=== PATIENT | female | born 1975 | race Caucasian/White ===

== ENCOUNTER 2020-04-12 11:41 | Emergency (ER) | payer OTHER, SELFPAY ==
[2020-04-12 11:43] VITALS: BP 144/83; PULSE 51; RESP 18; TEMP 37.7; O2SAT 99; BMI 28.8
--- NOTE | 2020-04-12 13:24 | ED.ABDPAIN ---
HPI - Abdominal Pain General Chief Complaint: Abdominal Pain Stated Complaint: abd pain Time Seen by Provider: 04/12/20 13:24 Source: patient Mode of arrival: ambulatory Limitations: no limitations History of Present Illness HPI narrative: This is a 44-year-old female with past medical history that is significant for hypertension, gastroesophageal reflux disease, degenerative joint disease, arthritis, fibromyalgia, pseudotumor cerebri, BRANCH EMPLOYMENT COORDINATOR shunt, obesity status post cholecystectomy and gastric bypass by Dr. Hebert 2016 subsequently in 2019 had bowel obstruction/intussusecption which require surgical intervention at [facility] and in the meantime she was maintained on a PPI which was discontinued 2 months ago due to concerns for the long-term affects of this she presents today with complaint of upper abdominal/epigastric pain for the past 3 days pain feels like burning and aching with no specific exacerbating/alleviating factors. She has not tried any PPI or other therapies prior to arrival. There is no chest pain or shortness of breath. No fever or symptoms. She does admit that after the bowel obstruction surgery she is very anxious about any sort of abdominal pain and this could be just her reflux but given the pain continuing for 3 days that prompted her to come to emergency room. No fluctuation in weight. Related Data Allergies Allergy/AdvReac Type Severity Reaction Status Date / Time lisinopril [LISINOPRIL] Allergy Unknown COUGH Verified 04/12/20 11:48 oxycodone [Percocet] Allergy Unknown Itching Verified 04/12/20 11:48 Penicillins [PENICILLINS] Allergy Unknown RASH Verified 04/12/20 11:48 lactose intol Allergy Unknown Nausea and Uncoded 04/12/20 11:48 Vomiting Review of Systems Review of Systems Constitutional: No Weight loss, No Fever, No Chills, No Night Sweats, No Fatigue, No Malaise ENT/Mouth: No Hearing loss, No Ear Pain, No Nasal Congestion, No Sinus Pain, No Hoarseness, No sore throat, No Rhinorrhea, No Swallowing Difficulty Eyes: No Eye Pain, No Swelling, No Redness, No Foreign Body, No Discharge, No Vision Changes Cardiovascular: No Chest Pain, No SOB, No Dyspnea on Exertion, No Orthopnea, No Edema, No Palpitations Respiratory: No Cough, No Sputum, No Wheezing, No Smoke Exposure, No Dyspnea Gastrointestinal: + Nausea, No Vomiting, No Diarrhea, No Constipation, + abdominal Pain, No Hematochezia, No Melena Genitourinary: no irregular bleeding, No Dysuria, No Urinary Frequency, No Hematuria, No Urinary Incontinence, No Urgency, No Flank Pain, No Urinary Flow Changes, No Hesitancy Musculoskeletal: No joint pain, No Myalgias, No Joint Swelling Skin: No Skin Lesions, No rash Neuro: No Weakness, No Numbness, No Paresthesias, No Loss of Consciousness, No Dizziness, No Headache Psych: No Anxiety/Panic, No Depression, No SI/HI/AH/VH, No Social Issues, Heme/Lymph: No Bruising, No Bleeding,No Lymphadenopathy Endocrine: No Polyuria, No Polydipsia, No Temperature Intolerance Physical Exam Vital Signs: Vital Signs: Vital Signs Temp Pulse Resp BP Pulse Ox 04/12/20 15:12 46 L 16 123/58 L 04/12/20 11:43 99.8 F 51 18 144/83 H 99 Body Mass Index 28.8 Reviewed Const: General: cooperative and healthy appearing; No acute distress or intoxicated appearing Nutritional Appearance: average body habitus Orientation/consciousness: patient oriented x3 HENMT: Head: Yes normal to inspection Ears: hearing grossly normal bilaterally Eyes: General: appearance normal, both eyes and all related structures Visual Mcfadden: normal visual mcfadden by confrontation Neck: Neck: Yes normal visual inspection and No tender Thyroid: Thyroid normal Chest: Chest palpation & inspection: normal inspection of the chest Resp: Effort & Inspection: normal respiratory effort Cardio: Jugular venous distension: no JVD GI: Inspection: Yes normal to inspection Percussion: Yes normal to percussion Auscultation: normal bowel sounds : General: Yes no CVA tenderness Back/Spine/Pelvis: Back: no CVA tenderness Skin: General skin exam: no rashes or lesions noted Neuro: General: patient oriented x3 Extrem: General: Yes normal to inspection Course Course Course Narrative: Stable. Findings reviewed. CT findings reviewed. Copy of her workup provided. Will call her GI tomorrow for follow-up. Tolerating p.o. intake well. Stable for discharge. MDM - Abdominal Pain MDM Narrative Medical decision making narrative: Will check labs, abdominal CT and treat with IV fluids, GI cocktail and re-evaluate. No signs or symptoms systemic infection/sepsis. Differential Diagnosis Differential diagnosis: Likely abdominal pain, gastritis, pancreatitis, peptic ulcer disease and small bowel obstruction; Unlikely aortic dissection, acute appendicitis, bowel perforation, calculus of kidney, constipation, diverticulitis, endometriosis, gastroenteritis, mesenteric ischemia, ovarian cyst and renal colic Lab Data Result diagrams: 04/12/20 15:02 04/12/20 15:02 Labs: Lab Results 04/12/20 04/12/20 04/12/20 Range/Units 15:02 15:02 15:02 WBC 7.7 (4.8-10.8) X10*3/uL RBC 4.17 L (4.20-5.50) X10*6/uL Hgb 13.2 (12.0-16.0) g/dl Hct 40.7 (37-47) % MCV 97.6 (80-98) fL MCH 31.7 (27.0-33.0) pg MCHC 32.4 (31.0-35.0) g/dl RDW 13.3 (11.0-16.0) % Plt Count 299 (160-400) X10*3/uL MPV 10.4 (9.4-12.3) fL Immature Gran % (Auto) 0.1 (0.0-0.4) % Neut % (Auto) 68.6 (45-73) % Lymph % (Auto) 22.4 (20-40) % [place] % (Auto) 7.0 (2-11) % Eos % (Auto) 1.3 (0-4) % Baso % (Auto) 0.6 (0-2) % Lymph # (Auto) 1.7 (1.2-4.9) X10*3/uL [place] # (Auto) 0.5 (0.1-1.2) X10*3/uL Eos # (Auto) 0.1 (0.0-0.4) X10*3/uL Baso # (Auto) 0.1 (0.0-0.2) X10*3/uL Abs Immat Gran (auto) 0.01 (0.00-0.03) X10*3/uL Absolute Neuts (auto) 5.3 (2.0-8.3) X10*3/uL Absolute Nucleated RBC 0.000 (0.0-0.012) X10*3/uL Nucleated RBC % (auto) 0.0 (0.0-0.2) /100WBC Hold Blue Top SEE NOTE Sodium 140 (135-145) mmol/L Potassium 4.5 (3.3-5.1) mmol/l Chloride 103 (96-108) mmol/L Carbon Dioxide 30 H (22-29) mmol/L Anion Gap 12 (12-20) BUN 19 H (9-16) mg/dL Creatinine 0.87 (0.5-1.4) mg/dL Estim Creat Clear Calc 86.6 Estimated GFR > 60 Random Glucose 94 (60-115) mg/dL Calcium 8.6 (8.4-10.2) mg/dL Total Bilirubin 0.6 (0.0-1.0) mg/dL AST 26 (5-31) U/L ALT 30 (0-31) U/L Alkaline Phosphatase 52 (39-117) U/L Total Protein 6.6 (6.5-8.0) g/dL Albumin 4.0 (3.5-5.0) g/dL Lipase 47 (8-78) U/L Urine Color Urine Appearance Urine pH (5.0-8.0) Ur Specific Rachel (1.005-1.025) Urine Protein (NEG-TRACE) MG/DL Urine Glucose (UA) (NEG) MG/DL Urine Ketones (NEG) MG/DL Urine Blood (NEG) Urine Nitrite (NEG) Ur Leukocyte Esterase (NEG) Urine RBC (0) /HPF Urine WBC (0-4) /HPF Ur Squamous Epith Cells /LPF Urine Bacteria /LPF 04/12/20 Range/Units 16:28 WBC (4.8-10.8) X10*3/uL RBC (4.20-5.50) X10*6/uL Hgb (12.0-16.0) g/dl Hct (37-47) % MCV (80-98) fL MCH (27.0-33.0) pg MCHC (31.0-35.0) g/dl RDW (11.0-16.0) % Plt Count (160-400) X10*3/uL MPV (9.4-12.3) fL Immature Gran % (Auto) (0.0-0.4) % Neut % (Auto) (45-73) % Lymph % (Auto) (20-40) % [place] % (Auto) (2-11) % Eos % (Auto) (0-4) % Baso % (Auto) (0-2) % Lymph # (Auto) (1.2-4.9) X10*3/uL [place] # (Auto) (0.1-1.2) X10*3/uL Eos # (Auto) (0.0-0.4) X10*3/uL Baso # (Auto) (0.0-0.2) X10*3/uL Abs Immat Gran (auto) (0.00-0.03) X10*3/uL Absolute Neuts (auto) (2.0-8.3) X10*3/uL Absolute Nucleated RBC (0.0-0.012) X10*3/uL Nucleated RBC % (auto) (0.0-0.2) /100WBC Hold Blue Top Sodium (135-145) mmol/L Potassium (3.3-5.1) mmol/l Chloride (96-108) mmol/L Carbon Dioxide (22-29) mmol/L Anion Gap (12-20) BUN (9-16) mg/dL Creatinine (0.5-1.4) mg/dL Estim Creat Clear Calc Estimated GFR Random Glucose (60-115) mg/dL Calcium (8.4-10.2) mg/dL Total Bilirubin (0.0-1.0) mg/dL AST (5-31) U/L ALT (0-31) U/L Alkaline Phosphatase (39-117) U/L Total Protein (6.5-8.0) g/dL Albumin (3.5-5.0) g/dL Lipase (8-78) U/L Urine Color YELLOW Urine Appearance CLEAR Urine pH 6.5 (5.0-8.0) Ur Specific Rachel 1.020 (1.005-1.025) Urine Protein NEG (NEG-TRACE) MG/DL Urine Glucose (UA) NEG (NEG) MG/DL Urine Ketones NEG (NEG) MG/DL Urine Blood 2+ H (NEG) Urine Nitrite NEG (NEG) Ur Leukocyte Esterase NEG (NEG) Urine RBC 1-4 (0) /HPF Urine WBC 0 (0-4) /HPF Ur Squamous Epith Cells 1+ /LPF Urine Bacteria NONE /LPF Imaging Data CT scan - abdomen: Radiologist's impression: [address] [address] [address] Scan Report Signed Patient: Mare Morley#: [id number] : 1975Acct:[id number] Age/Sex: 44 / FADM Date: 04/12/20 Loc: HO.ED Attending Dr: Ordering Physician: Fabian Martin NP Date of Service: 04/12/20 Procedure(s): CT abdomen pelvis w con Accession Number(s): [id number] cc: Fabian Martin GAMEPLAY ENGINEER~ EXAMINATION: CT ABDOMEN AND PELVIS WITH CONTRAST CLINICAL INFORMATION: Abdominal pain COMPARISON: Previous CT scans most recent March 2019 TECHNIQUE: Multidetector volumetric images were obtained from the superior aspect of the liver through the pubic symphysis following administration 85 mL of Omnipaque 350 intravenous contrast. Sagittal and coronal reformatted images were obtained on the technologist's workstation. Oral contrast: Yes This CT examination was performed using dose optimization techniques as appropriate, variously including the following: *Automated exposure control *Adjustment of mA and/or kV according to patient size (this includes techniques or standardized protocols for targeted exams where dose is matched to indication/reason for exam; i.e. extremities or head) *Use of iterative reconstruction technique DLP: 658 mGy-cm FINDINGS: LUNG BASES: The visualized lung bases are unremarkable. LIVER, GALLBLADDER, AND BILIARY TREE: The liver is normal in size, shape, and attenuation. There is a small 9 mm low-attenuation lesion in the right lobe of the liver axial image 18 series 3. This is difficult to characterize but is a stable. No other liver lesion is seen. The gallbladder has been removed. PANCREAS: Unremarkable. SPLEEN: Unremarkable. ADRENAL GLANDS: Unremarkable. KIDNEYS AND URETERS: There are bilateral renal stones. There is a 1 to 2 mm stone in the upper pole of the right kidney and a 3 mm stone in the lower pole of the right kidney. There is a 2 mm stone in the upper pole and midpole of the left kidney. There is a 4 mm stone in the central upper left kidney. No hydronephrosis, ureteral dilatation or ureteral stone is seen. There are innumerable multiple bilateral renal cysts. BLADDER: Not optimally distended. GASTROINTESTINAL TRACT: There are postsurgical changes from gastric bypass. There are dilated loops of small bowel in the left mid abdomen at the small bowel anastomosis. Large bowel loop measures 3.8 cm in diameter. This is slightly more prominent than seen on prior exams. There is stool throughout the colon suggestive of constipation. The appendix is unremarkable. There is a BRANCH EMPLOYMENT COORDINATOR shunt catheter with tip in the pelvis. There is no ascites. ABDOMINAL WALL: No significant hernia is appreciated. LYMPH NODES: Normal. VASCULAR: Unremarkable. PELVIC VISCERA: The uterus is a significantly smaller and may have been removed. No pelvic mass is seen. OSSEOUS STRUCTURES: There are degenerative changes of the spine. IMPRESSION: Postoperative change following gastric bypass. There are dilated loops of small bowel in the left mid abdomen at the small bowel anastomosis. This appears slightly increased compared to prior exams. Imaging follow-up should be considered. Stool throughout the colon suggestive of constipation. Bilateral renal stones. Innumerable bilateral renal cysts. Stable small low-attenuation liver lesion. BRANCH EMPLOYMENT COORDINATOR shunt catheter with tip in the pelvis. Dictated By:YARA TINEO MD Signed By:<Electronically signed by YARA TINEO MD in OV>04/12/20 1648 DD/ 1325 TD/TT: Rim Turning Finisher: MARY JANE Discharge Plan Discharge Clinical Impression: Abdominal pain Qualifiers: Abdominal location: epigastric Qualified Code(s): R10.13 - Epigastric pain Patient Disposition: Home, Self-Care Instructions: Gastroesophageal Reflux Disease (ED) Additional Instructions: [place] diet as reviewed Start taking her antacid medication for the next 7 days as prescribed Follow-up with your bariatric team as discussed Return if any concerns or worsening symptoms Thank you PMFSH Past Medical History Attestation statement: The following information was validated with the patient. Medical History (Updated 04/12/20 @ 17:53 by Fabian Martin NP) Cystic kidney disease Ischemic necrosis of small bowel SBO (small bowel obstruction) Surgical History (Updated 04/12/20 @ 11:45 by Marielos Marshall) Gastric bypass status for obesity History of hysterectomy BRANCH EMPLOYMENT COORDINATOR (ventriculoperitoneal) shunt status Social History Social History Advance Directives: No Advance Directives Information Provided: Yes
[2020-04-12] MEDS: Lidocaine HCl Viscous 2 % 15 ML SOLUTION 10 ML MUCOUS MEM (15:07)
[2020-04-12] MEDS: 0.9 % Sodium Chloride 1,000 ML 999 ML IVCONT (15:07)
[2020-04-12 15:08] LABS: MANUAL DIFF FLAG NO
[2020-04-12] MEDS: ondansetron HCL 4 MG/2 ML VIAL IVPUSH (15:08)
[2020-04-12] MEDS: Magnesium Hydrox/Alum Hydrox 30 ML ORAL.SUSP PO (15:08)
[2020-04-12 15:11] LABS: Basophils Absolute Auto 0.1 X10*3/uL (0.0-0.2); Basophils Percent Auto 0.6 % (0-2); Eosinophils Absolute Auto 0.1 X10*3/uL (0.0-0.4); Eosinophils Percent Auto 1.3 % (0-4); Hematocrit 40.7 % (37-47); Hemoglobin 13.2 g/dl (12.0-16.0); Imm Gran Abs Auto 0.01 X10*3/uL (0.00-0.03); Imm Gran Pct Auto 0.1 % (0.0-0.4); Lymphocytes Absolute Auto 1.7 X10*3/uL (1.2-4.9); Lymphocytes Percent Auto 22.4 % (20-40); Mean Corpuscular HGB Conc 32.4 g/dl (31.0-35.0); Mean Corpuscular Hemoglobin 31.7 pg (27.0-33.0); Mean Corpuscular Volume 97.6 fL (80-98); Mean Platelet Volume 10.4 fL (9.4-12.3); Monocytes Absolute Auto 0.5 X10*3/uL (0.1-1.2); Neutrophils Absolute Auto 5.3 X10*3/uL (2.0-8.3); Neutrophils Percent Auto 68.6 % (45-73); Platelet Count 299 X10*3/uL (160-400); Red Blood Count 4.17 X10*6/uL (4.20-5.50); Red Cell Distribution Width 13.3 % (11.0-16.0); White Blood Count 7.7 X10*3/uL (4.8-10.8)
[2020-04-12 15:12] VITALS: BP 123/58; PULSE 46; RESP 16
[2020-04-12 15:35] LABS: Alanine Aminotransferase 30 U/L (0-31); Alkaline Phosphatase 52 U/L (39-117); Anion Gap 12 (12-20); Aspartate Amino Transferase 26 U/L (5-31); Bilirubin Total 0.6 mg/dL (0.0-1.0); Blood Urea Nitrogen 19 mg/dL (9-16); Calcium 8.6 mg/dL (8.4-10.2); Carbon Dioxide 30 mmol/L (22-29); Chloride 103 mmol/L (96-108); Creatinine Clr Calc Pharmacy 86.6; Estimated Glomerular Filt Rate > 60; Glucose Random 94 mg/dL (60-115); Lipase 47 U/L (8-78); Potassium 4.5 mmol/l (3.3-5.1); Sodium 140 mmol/L (135-145); Total Protein 6.6 g/dL (6.5-8.0)
[2020-04-12] MEDS: iohexoL 350 MG/ML 100 ML INFUS..BTL IV (16:23)
--- NOTE | 2020-04-12 16:30 | PC.NURSE ---
pt ambulated from ct scan w steady gait, provided ua spec. awaiting results. pt sts relief from earlier addiction medicine physician.
[2020-04-12 16:36] LABS: Glucose Urine UA NEG (NEG); Leukocyte Esterase Urine NEG (NEG); Nitrite Urine NEG (NEG); PH 6.5 (5.0-8.0); Urine Blood 2+ (NEG); Urine Ketones NEG (NEG); Urine Protein NEG (NEG-TRACE)
[2020-04-12 16:37] LABS: Appearance Urine CLEAR; Color Urine YELLOW
[2020-04-12 16:53] LABS: Squamous Epithelial Cell Urine 1+ /LPF; WBC Urine 0 /HPF (0-4)
[2020-04-12 18:05] VITALS: BP 137/67; PULSE 50; RESP 18; TEMP 37.1; O2SAT 99
== END 2020-04-12 18:18 | disposition home or self-care (01) ==
PROVIDERS: Nurse Practitioner Primary Care; Emergency Provider Emergency Medicine; PCP Internal Medicine
DX: R10.13 Epigastric pain (principal); K21.9 Gastro-esophageal reflux disease without esophagitis; Q61.9 Cystic kidney disease, unspecified; Z98.84 Bariatric surgery status; Z79.899 Other long term (current) drug therapy
CPT/HCPCS: 36415; 74177; 80053; 81001; 83690; 85025; 96361; 96374; 99284; J2405

== ENCOUNTER → 2020-04-13 13:35 | Outpatient (BNVA) | payer OTHER, SELFPAY | PROVIDERS: PCP Internal Medicine; Referring Provider Internal Medicine; Visit Provider Physician Assistant | DX: Z76.89 Persons encountering health services in other specified circumstances (principal) ==

== ENCOUNTER → 2020-04-19 08:18 | Outpatient (BNVA) | payer OTHER, SELFPAY | PROVIDERS: PCP Internal Medicine; Visit Provider Physician Assistant | DX: K59.00 Constipation, unspecified (principal); Z98.84 Bariatric surgery status; Z79.899 Other long term (current) drug therapy; Z87.891 Personal history of nicotine dependence ==

== ENCOUNTER 2020-04-25 09:53 | Outpatient (REF) | payer OTHER, SELFPAY ==
--- NOTE | 2020-04-25 | US_ITS ---
EXAMINATION: US RETROPERITONEAL LIMITED (RENAL ONLY) CLINICAL INFORMATION: Nephrolithiasis. COMPARISON: Renal ultrasound dated 10/29/2019. CT abdomen and pelvis dated 04/12/2020. TECHNIQUE: Real-time imaging of the kidneys. FINDINGS: RIGHT KIDNEY: 13.5 x 5.6 x 5.7 cm (SAG x AP x TRV). The kidney is normal in size, contour, and echogenicity. Renal cortical thickness is normal. No hydronephrosis. There are numerous cysts seen. Some of the cysts have septations and are likely complex. The largest cyst measures 1.7 x 2.3 x 1.9 cm There are small echogenic areas, question calcifications or small stones. LEFT KIDNEY: 13.5 x 5.1 x 6.1 cm (SAG x AP x TRV). The kidney is normal in size, contour, and echogenicity. Renal cortical thickness is normal. No hydronephrosis. There are multiple anechoic cysts largest in the midpole measures 1.5 x 1.8 x 1.8 cm. There are several echogenic areas, question multiple stones versus multiple calcifications. US/US renal BI IMPRESSION: Bilateral multiple renal cysts and multiple echogenic stones or calcifications. No hydronephrosis.
== END 2020-04-25 09:54 | disposition home or self-care (01) ==
LOC: HO.US 09:53
PROVIDERS: Visit Provider Urology
DX: N20.0 Calculus of kidney (principal)
CPT/HCPCS: 76775

== ENCOUNTER 2020-05-24 09:17 | Day surgery (SDC) | payer OTHER, SELFPAY ==
[2020-05-18 14:51] VITALS: BMI 28.4
--- NOTE | 2020-05-23 11:59 | P.CONAN_ITS ---
Documented by User: Debbie Moreno 05/23/20 12:02 HPI - Anesthesia Eval Consult details Narrative: 44yo F for Upper Endoscopy and Colonoscopy s/p gastric bypass [facility] Past Medical History Medical History (Updated 05/23/20 @ 12:00 by Debbie Moreno) Anemia Arthritis Back pain Cerebrospinal fluid leak Constipation Depression Epigastric pain History of fibromyalgia History of headache History of posttraumatic stress disorder (PTSD) Hx of cardiac murmur Hx of degenerative disc disease Hx of polycystic kidney disease Hx of renal calculi Intussusception Ischemic necrosis of small bowel Overweight (BMI 25.0-29.9) Pseudotumor cerebri SBO (small bowel obstruction) Family History Family History Father HTN (hypertension) Heroin abuse Hepatitis C Alcohol abuse Mother Hepatitis C Anemia Necrosis Alcohol abuse Brother No problems noted. Brother No problems noted. Brother No problems noted. Son No problems noted. Surgical History Surgical History (Updated 05/18/20 @ 14:58 by Esther Winston) Gastric bypass status for obesity History of colon resection History of hysterectomy Hx laparoscopic cholecystectomy Hx of colonoscopy Hx of tubal ligation S/P small bowel resection SSDS MK 2 ADVANCED OPERATOR (ventriculoperitoneal) shunt status Social History Social History (Updated 05/18/20 @ 15:00 by Esther Winston) Household Members: Spouse Housing: House Alcohol intake: current Alcohol intake frequency: holidays/special occasions only Smoking Status: Former smoker Tobacco Type: Cigarette Smoking Quit Date: 2014 Advance Directives Information Provided: No service: No Current occupational status: employed 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[employer] Meds Allergies Allergy/AdvReac Type Severity Reaction Status Date / Time lactose Allergy Intermediate Nausea and Verified 05/18/20 15:01 Vomiting oxycodone [Percocet] Allergy Intermediate Itching Verified 05/18/20 15:01 Penicillins [PENICILLINS] Allergy Intermediate RASH Verified 05/18/20 15:01 lisinopril [LISINOPRIL] AdvReac Intermediate COUGH Verified 05/18/20 15:01 Home Medications Medication Instructions Recorded Confirmed Type acetaminophen 300 mg-codeine 30 mg 1 tab PO Q6H PRN 04/13/20 05/18/20 History tablet fluoxetine 40 mg capsule 40 mg PO DAILY 04/13/20 05/18/20 History furosemide 40 mg tablet 40 mg PO DAILY 04/13/20 05/18/20 History lansoprazole 30 mg capsule,delayed 30 mg PO DAILY 04/13/20 05/18/20 History release wfjqlyyj-lawiranr-ogxm 45 mg-folic 1 cap PO DAILY 04/13/20 05/18/20 History acid 800 mcg-vit K 120 mcg capsule Exam Exam Date and Time: May 23, 2020 1159 Height,Weight and Vital Signs: Height 5 ft 6 in Weight 80 kg Pertinent Lab Results Pertinent Lab Results: Laboratory Tests 04/12/20 04/12/20 15:02 15:02 WBC 7.7 Hgb 13.2 Hct 40.7 Plt Count 299 Sodium 140 Potassium 4.5 Chloride 103 Carbon Dioxide 30 H BUN 19 H Creatinine 0.87 Narrative Narrative: EKG 11/2019: [id number]@62 Assessment and Plan Assessment Anesthesia Assessment: Chart Reviewed Documented by User: June Anti 05/24/20 10:16 PMFSH Past Medical History Medical History (Updated 05/23/20 @ 12:00 by Debbie Moreno) Anemia Arthritis Back pain Cerebrospinal fluid leak Constipation Depression Epigastric pain History of fibromyalgia History of headache History of posttraumatic stress disorder (PTSD) Hx of cardiac murmur Hx of degenerative disc disease Hx of polycystic kidney disease Hx of renal calculi Intussusception Ischemic necrosis of small bowel Overweight (BMI 25.0-29.9) Pseudotumor cerebri SBO (small bowel obstruction) Family History Family History Father HTN (hypertension) Heroin abuse Hepatitis C Alcohol abuse Mother Hepatitis C Anemia Necrosis Alcohol abuse Brother No problems noted. Brother No problems noted. Brother No problems noted. Son No problems noted. Surgical History Surgical History (Updated 05/18/20 @ 14:58 by Esther Winston) Gastric bypass status for obesity History of colon resection History of hysterectomy Hx laparoscopic cholecystectomy Hx of colonoscopy Hx of tubal ligation S/P small bowel resection SSDS MK 2 ADVANCED OPERATOR (ventriculoperitoneal) shunt status Social History Social History (Updated 05/18/20 @ 15:00 by Esther Winston) Household Members: Spouse Housing: House Alcohol intake: current Alcohol intake frequency: holidays/special occasions only Smoking Status: Former smoker Tobacco Type: Cigarette Smoking Quit Date: 2014 Advance Directives Information Provided: No service: No Current occupational status: employed 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[employer] Meds Allergies Allergy/AdvReac Type Severity Reaction Status Date / Time lactose Allergy Intermediate Nausea and Verified 05/18/20 15:01 Vomiting oxycodone [Percocet] Allergy Intermediate Itching Verified 05/18/20 15:01 Penicillins [PENICILLINS] Allergy Intermediate RASH Verified 05/18/20 15:01 lisinopril [LISINOPRIL] AdvReac Intermediate COUGH Verified 05/18/20 15:01 Home Medications Medication Instructions Recorded Confirmed Type acetaminophen 300 mg-codeine 30 mg 1 tab PO Q6H PRN 04/13/20 05/18/20 History tablet fluoxetine 40 mg capsule 40 mg PO DAILY 04/13/20 05/18/20 History furosemide 40 mg tablet 40 mg PO DAILY 04/13/20 05/18/20 History lansoprazole 30 mg capsule,delayed 30 mg PO DAILY 04/13/20 05/18/20 History release ckhoexyr-xmyaehku-imrg 45 mg-folic 1 cap PO DAILY 04/13/20 05/18/20 History acid 800 mcg-vit K 120 mcg capsule Exam Airway Mallampati Class: II TM Dist: >3cm Neck ROM: Full Loose/Missing/Broken Teeth: No Heart: efrem, reg rhythm Lungs: CTA Assessment and Plan Assessment Anesthesia Assessment: Anesthesia Plan Discussed and Chart Reviewed Final Anesthetic Review NPO: Yes ASA Class: III Final Preanesthetic Review: Meds/Allgs Chart Reviewed, Consent Obtained/Reviewed and Anes Risks/Benef Reviewed Patient Risk: Intermediate Procedure Risk: Intermediate Anesthetic Plan Anesthetic Plan: MAC: Disposition: Standard PACU
[2020-05-24 09:49] VITALS: BP 136/79; PULSE 47; RESP 18; TEMP 36.1; O2SAT 99
--- NOTE | 2020-05-24 10:18 | MHC.SHP ---
Pre-Procedural Eval Section B Chief Complaint: epigastric pain,constipation Relevant Social History: None Present Medications: see Short Stay Collaborative assessment Medical History: Significant History (Gastric bypass status for obesity History of colon resection History of hysterectomy Hx laparoscopic cholecystectomy Hx of colonoscopy ) History of Previous Operations: Relevant previous surgery/procedure and date(s) (Hx of tubal ligation S/P small bowel resection POWER LINEMAN TECHNICIAN (ventriculoperitoneal) shunt status) Allergies: Allergies Allergy/AdvReac Type Severity Reaction Status Date / Time lactose Allergy Intermediate Nausea and Verified 05/18/20 15:01 Vomiting oxycodone [Percocet] Allergy Intermediate Itching Verified 05/18/20 15:01 Penicillins [PENICILLINS] Allergy Intermediate RASH Verified 05/18/20 15:01 lisinopril [LISINOPRIL] AdvReac Intermediate COUGH Verified 05/18/20 15:01 Review of Systems Sugical H&P ROS: Negative: Constitution, Cardiovascular, Respiratory, Neurological, Psychiatric, Hem-Onc, Allergic/Immunologic, Gastrointestinal, Genitourinary, Musculoskeletal, Integumentary, Endocrine and Eyes/Ears/Nose/Throat Exam Surgical H&P Exam: Normal: HEENT, Normal: Heart, Normal: Lungs, Normal: Extremities, Normal: Abdomen, Normal: Skin and Normal: Neurological Plan Diagnosis/Plan: Unchanged Patient has been examined and remains a candidate for the planned procedure
--- NOTE | 2020-05-24 11:13 | PM.OP ---
Brief Operative Note Date of Service: 05/24/20 Pre-op diagnosis: abdo pain and constipation Post-op diagnosis: same Procedure: see op note Surgeon: Lia Tolentino MD Anesthesia: MAC Estimated blood loss (mL): 0 Condition: stable Disposition: PACU
--- NOTE | 2020-05-24 11:13 | W.PM.OPN ---
Operative Note Operative Note Date of Service: 05/24/20 Narrative: Operative Information Procedure Description: EGD, Colonoscopy FLEXIBLE TRANSORAL UPPER GASTROINTESTINAL ENDOSCOPY AND COLONOSCOPY PROCEDURE NOTE UPPER ENDOSCOPY Consent: Indications for the procedure and potential complications of bleeding, perforation, reaction to medications and missed diagnosis were discussed with the patient and informed consent was obtained. Instrument: Olympus GIF H 190 J mid size upper endoscope Monitoring: Vital signs and clinical assessment, continuous EKG monitoring, Pulse oximetry, Carbon Dioxide monitoring and blood pressure monitoring were done throughout the procedure. Procedure: The patient was placed in the left lateral decubitis position and pre-procedure medications were administered and a bite block was placed. The endoscope was inserted into the mouth and advanced under direct vision to the third part of duodenum. A careful inspection was made as the upper endoscope was withdrawn including a retroflexed examination of the proximal stomach; Findings and interventions are described below. Findings: Hx of gastric bypass Larynx:normal Esophagus: GE junction at 36 cm, diaphragm hiatus at 36 cm, normal mucosa Stomach: Normal mucosa. Biopsies were obtained. Grade 2 flap valve on retroflexed examination of the cardia. retained suture and 2 lu noted which were removed. jejunum: normal mucosa, bx taken Intervention: Biopsies as noted above, removal of suture and lu COLONOSCOPY Instrument: Olympus variable stiffness pediatric scope 190L Colonoscopy Monitoring: Vital signs and clinical assessment, continuous EKG monitoring, Pulse oximetry, Carbon Dioxide monitoring and blood pressure monitoring were done throughout the procedure. Colon withdrawal time was 15 minutes. Procedure: The patient was placed in the left lateral decubitis position and pre-procedure medications were administered. After a digital rectal examination of the ano-rectum, the video colonoscope was inserted into the rectum and advanced through the colon to the cecum/TI. The colonoscope was slowly withdrawn in a retrograde panoramic fashion and the colon mucosa was carefully examined including a retroflexed view of the rectum. Findings and interventions are described below. Procedure Difficulty: Findings: Terminal Ileum-normal, bx taken random colon bx taken Cecum:normal Ascending Colon: normal Transverse Colon -normal Descending Colon:normal Sigmoid Colon: normal Rectum: Retroflexion with small internal hemorrhoids, grade I Anorectum - normal Colon preparation: [place] Bowel Preparation Scale Right colon; 3 Transverse colon: 3 Left colon; 1 (0 = Unprepared colon segment with mucosa not seen due to solid stool that cannot be cleared. 1 = Portion of mucosa of the colon segment seen, but other areas of the colon segment not well seen due to staining, residual stool and/or opaque liquid. 2 = Minor amount of residual staining, small fragments of stool and/or opaque liquid, but mucosa of colon segment seen well. 3 = Entire mucosa of colon segment seen well with no residual staining, small fragments of stool or opaque liquid) Impression and Post Procedure Diagnosis: Endoscopy Findings: retained suture and lu Colonoscopy Findings: internal hemorrhoids Plan: Await Pathology results Repeat Colonoscopy in 5 years due to fair left sided prep or earlier if clinically indicated High fiber diet leaflet avoid straining at stool, epsom salts and sitz bath prn, anusol supps or cream prn Above findings were reviewed with the patient and relevant handouts were provided if indicated.
[2020-05-24 11:20] VITALS: BP 125/79; PULSE 74; RESP 16; TEMP 36.2; O2SAT 99
[2020-05-24 11:35] VITALS: BP 116/80; PULSE 74; RESP 18; TEMP 36.2; O2SAT 99
== END 2020-05-24 12:11 | disposition home or self-care (01) ==
PROVIDERS: PCP Internal Medicine; Visit Provider Internal Medicine Gastroenterology
PROC: (CPT 43239; principal; 2020-05-24 10:30)
DX: R10.13 Epigastric pain (principal); K59.00 Constipation, unspecified; K64.0 First degree hemorrhoids; M79.5 Residual foreign body in soft tissue; I10 Essential (primary) hypertension; K76.9 Liver disease, unspecified; Z79.899 Other long term (current) drug therapy; Z98.84 Bariatric surgery status; Z90.49 Acquired absence of other specified parts of digestive tract; Z98.2 Presence of cerebrospinal fluid drainage device; Z88.0 Allergy status to penicillin; Z88.6 Allergy status to analgesic agent; Z88.8 Allergy status to other drugs, medicaments and biological substances
CPT/HCPCS: 43239; 43247; 45380; 88305; 88342; J2405

== ENCOUNTER → 2020-06-13 08:25 | Outpatient (BNVA) | payer OTHER, SELFPAY | PROVIDERS: PCP Internal Medicine; Referring Provider Internal Medicine; Visit Provider Internal Medicine Gastroenterology | DX: Z76.89 Persons encountering health services in other specified circumstances (principal) ==

== ENCOUNTER 2020-07-12 10:50 | Outpatient (REF) | payer OTHER, SELFPAY ==
[2020-07-12 13:34] LABS: MANUAL DIFF FLAG NO
[2020-07-12 13:51] LABS: Basophils Percent Auto 0.3 % (0-2); Eosinophils Absolute Auto 0.2 X10*3/uL (0.0-0.4); Eosinophils Percent Auto 3.3 % (0-4); Hematocrit 38.3 % (37-47); Hemoglobin 12.4 g/dl (12.0-16.0); Imm Gran Abs Auto 0.02 X10*3/uL (0.00-0.03); Imm Gran Pct Auto 0.3 % (0.0-0.4); Lymphocytes Absolute Auto 1.2 X10*3/uL (1.2-4.9); Lymphocytes Percent Auto 19.2 % (20-40); Mean Corpuscular HGB Conc 32.4 g/dl (31.0-35.0); Mean Corpuscular Hemoglobin 31.9 pg (27.0-33.0); Mean Corpuscular Volume 98.5 fL (80-98); Monocytes Absolute Auto 0.5 X10*3/uL (0.1-1.2); Monocytes Percent Auto 7.5 % (2-11); Neutrophils Absolute Auto 4.3 X10*3/uL (2.0-8.3); Neutrophils Percent Auto 69.4 % (45-73); Platelet Count 261 X10*3/uL (160-400); Red Blood Count 3.89 X10*6/uL (4.20-5.50); Red Cell Distribution Width 14.7 % (11.0-16.0); White Blood Count 6.2 X10*3/uL (4.8-10.8)
[2020-07-12 14:44] LABS: Anion Gap 13 (12-20); Blood Urea Nitrogen 20 mg/dL (9-16); Carbon Dioxide 24 mmol/L (22-29); Chloride 105 mmol/L (96-108); Estimated Glomerular Filt Rate > 60; Glucose Random 115 mg/dL (60-115); Iron 76 mcg/dL (30-160); Percent Iron Saturation 22 % (15-50); Potassium 4.1 mmol/l (3.3-5.1); Sodium 138 mmol/L (135-145); Total Iron Binding Capacity 350 mcg/dL (228-428); Unsaturated Iron Binding 274 ug/dL
== END 2020-07-12 10:51 | disposition home or self-care (01) ==
LOC: HO.10HDL 10:50
PROVIDERS: Visit Provider Psychiatry & Neurology Neurology
DX: R51.9 Headache, unspecified (principal)
CPT/HCPCS: 36415; 80051; 82565; 82947; 83540; 84520; 85025

== ENCOUNTER 2020-10-20 11:55 | Day surgery (SDC) | payer OTHER, SELFPAY ==
[2020-10-20] VITALS (8 sets, daily range): BP systolic 92–121; BP diastolic 44–78; PULSE 64–85; RESP 16–19; TEMP 36.6–37; O2SAT 97–100; BMI 27.8
--- NOTE | ~2020-10-20 | FL_ITS ---
EXAMINATION: FL GUIDED LUMBAR PUNCTURE CLINICAL INFORMATION: Pseudotumor cerebri. COMPARISON: None TECHNIQUE: Following explaining fluoroscopy-guided lumbar puncture procedure, benefits and risks, a written consent was obtained. Patient was placed prone on fluoroscopy table and low back area was cleaned and draped in the usual sterile manner. 1% lidocaine was injected at the puncture site overlying the L4-L5 disc level. A 22-gauge spinal needle was then advanced from the skin intrathecally at the L4-L5 disc level. After observing CSF return following removal of stylet, patient was quickly placed in the left lateral decubitus view, and opening CSF pressure was obtained. Subsequently, CSF was collected in 4 test tubes. Postprocedure stylet was reintroduced and needle withdrawn. Patient tolerated procedure extremely well. Simple Band-Aid dressing applied postprocedure. FINDINGS: On a single PA image obtained of lumbar spine under fluoroscopy, there is normal vertebral heights, alignment and disc heights. The needle is positioned at the L4-L5 disc level. Opening CSF pressure is 14.5 cm of water. Approximately 11 mL of clear CSF fluid was collected in 4 test tubes. The 3rd test tube had minimal hemorrhage. FLUOROSCOPY TIME: 1.0 minutes DOSE AREA PRODUCT: 19.134 uGy-m2 (microgray-meter squared) FL/FL guided lumbar puncture LP IMPRESSION: Successful fluoroscopy-guided L4-L5 lumbar puncture performed. Opening CSF pressure was 14.5 cm of water.
[2020-10-20 12:24] LABS: MANUAL DIFF FLAG NO
[2020-10-20 12:27] LABS: Basophils Percent Auto 0.4 % (0-2); Eosinophils Absolute Auto 0.1 X10*3/uL (0.0-0.4); Eosinophils Percent Auto 1.9 % (0-4); Hematocrit 38.7 % (37-47); Hemoglobin 12.7 g/dl (12.0-16.0); Imm Gran Abs Auto 0.04 X10*3/uL (0.00-0.03); Imm Gran Pct Auto 0.5 % (0.0-0.4); Lymphocytes Absolute Auto 1.5 X10*3/uL (1.2-4.9); Lymphocytes Percent Auto 19.8 % (20-40); Mean Corpuscular HGB Conc 32.8 g/dl (31.0-35.0); Mean Corpuscular Hemoglobin 32.4 pg (27.0-33.0); Mean Corpuscular Volume 98.7 fL (80-98); Mean Platelet Volume 10.1 fL (9.4-12.3); Monocytes Absolute Auto 0.6 X10*3/uL (0.1-1.2); Monocytes Percent Auto 8.6 % (2-11); Neutrophils Absolute Auto 5.1 X10*3/uL (2.0-8.3); Neutrophils Percent Auto 68.8 % (45-73); Platelet Count 247 X10*3/uL (160-400); Red Blood Count 3.92 X10*6/uL (4.20-5.50); Red Cell Distribution Width 13.5 % (11.0-16.0); White Blood Count 7.4 X10*3/uL (4.8-10.8)
[2020-10-20 12:36] LABS: INTERNATIONAL NORM RATIO 1.1 (0.9-1.1); Prothrombin Time 12.9 SEC (10.8-13.0)
[2020-10-20 12:39] LABS: Partial Thromboplastin Time 34.9 SEC (24.1-38.0)
[2020-10-20 15:22] LABS: CSF Appearance Clear, Colorless; CSF Tube # 2
[2020-10-20 15:34] LABS: Glucose CSF 61 mg/dL; Total Protein CSF 61.4 mg/dL (15-45)
[2020-10-20 16:14] LABS: Appearance CSF CLEAR; CSF Tube # 4
[2020-10-20 16:15] LABS: Color CSF COLORLESS; Red Blood Cell CSF 845 MM*3; White Blood Cell CSF 3 MM*3
[2020-10-20 16:22] LABS: CSF Monos 2 %
[2020-10-20 16:23] LABS: CSF Other Cells % 2 %; Lymphocytes CSF 70 %; Neutrophils CSF 26 %
== END 2020-10-20 16:34 | disposition home or self-care (01) ==
PROVIDERS: Psychiatry & Neurology Neurology; PCP Internal Medicine; Visit Provider Radiology Diagnostic Radiology
PROC: 009U3ZZ Drainage of Spinal Canal, Percutaneous Approach (ICD-10-PCS; CPT 62270; principal; 2020-10-20 13:30)
DX: G93.2 Benign intracranial hypertension (principal)
CPT/HCPCS: 36415; 62328; 82945; 84157; 85025; 85610; 85730; 87015; 87070; 87205; 89051

== ENCOUNTER 2022-01-19 09:08 | Outpatient (REF) | payer OTHER, SELFPAY ==
--- NOTE | ~2022-01-19 | XR_ITS ---
EXAMINATION: XR LUMBAR SPINE XR DORSAL SPINE CLINICAL INFORMATION: Fracture of thoracic vertebra. Pain. COMPARISON: None TECHNIQUE: 3 views dorsal spine and 3 views lumbar spine. FINDINGS: DORSAL SPINE: There is normal thoracic kyphosis. The vertebral heights, alignment and disc heights are normal. There is no visible acute fracture, dislocation or subluxation seen. There is moderate spondylosis of the dorsal spine. No lytic or sclerotic process seen. The paravertebral soft tissues are normal. LUMBAR SPINE: There is normal lumbar lordosis. The vertebral heights and alignment are normal. There is mild loss of L5-S1 disc height. The rest of the disc heights are maintained. There is mild hypertrophy of the right L3-L4 facet joint. No visible acute fracture, dislocation or lytic process seen. The SI joints are symmetrical and normal. The paravertebral soft tissues are normal. XR/XR thoracic spine 3V IMPRESSION: Degenerative disc changes L5-S1 disc level. No visible acute fracture or dislocation seen. Unremarkable dorsal spine exam except for moderate spondylosis and calcification of the anterior longitudinal ligament in mid dorsal spine.
--- NOTE | ~2022-01-19 | XR_ITS ---
EXAMINATION: XR LUMBAR SPINE XR DORSAL SPINE CLINICAL INFORMATION: Fracture of thoracic vertebra. Pain. COMPARISON: None TECHNIQUE: 3 views dorsal spine and 3 views lumbar spine. FINDINGS: DORSAL SPINE: There is normal thoracic kyphosis. The vertebral heights, alignment and disc heights are normal. There is no visible acute fracture, dislocation or subluxation seen. There is moderate spondylosis of the dorsal spine. No lytic or sclerotic process seen. The paravertebral soft tissues are normal. LUMBAR SPINE: There is normal lumbar lordosis. The vertebral heights and alignment are normal. There is mild loss of L5-S1 disc height. The rest of the disc heights are maintained. There is mild hypertrophy of the right L3-L4 facet joint. No visible acute fracture, dislocation or lytic process seen. The SI joints are symmetrical and normal. The paravertebral soft tissues are normal. XR/XR lumbar spine 2-3V IMPRESSION: Degenerative disc changes L5-S1 disc level. No visible acute fracture or dislocation seen. Unremarkable dorsal spine exam except for moderate spondylosis and calcification of the anterior longitudinal ligament in mid dorsal spine.
== END 2022-01-19 09:09 | disposition home or self-care (01) ==
LOC: HO.HMGCX 09:08
PROVIDERS: Visit Provider Psychiatry & Neurology Neurology
DX: S22.009A Unspecified fracture of unspecified thoracic vertebra, initial encounter for closed fracture (principal); X58.XXXA Exposure to other specified factors, initial encounter; Y93.9 Activity, unspecified; Y92.9 Unspecified place or not applicable; Y99.8 Other external cause status
CPT/HCPCS: 72072; 72100

== ENCOUNTER 2025-03-16 09:34 | Outpatient (AMB) | payer OTHER, SELFPAY ==
--- NOTE | 2025-03-16 10:02 | A.OFFVIS_ITS ---
Vital Signs 03/16/25 10:08 Height 5 ft 7 in BP 126/76 Blood Pressure Location Rt brachial Position Sitting Respiration 16 Pulse 87 Pulse Oximetry (%) 99 Intake Visit Reasons: 6m Migraine Green Chain Operator Required: No Allergies lactose Allergy (Intermediate, Verified 03/16/25 10:02) Nausea and Vomiting oxycodone (Percocet) Allergy (Intermediate, Verified 03/16/25 10:02) Itching Penicillins (PENICILLINS) Allergy (Intermediate, Verified 03/16/25 10:02) RASH lisinopril (LISINOPRIL) Adverse Reaction (Intermediate, Verified 03/16/25 10:02) COUGH HPI Comments Details: Martin is a 49-year-old female patient with a past medical history of pseudotumor with SKIP PIT WORKER shunt placement in 2012 at [facility] and subsequent CSF leak in 2016 with repair at [facility] with same neurosurgeon. She follows in the clinic for chronic headaches. Her last LP was normal per documentation however there is no associated date. She has not been following with Ophthalmology. Last imaging is unknown. Patient tells me today that her headaches are currently worsening. She is having 4-5 headaches per week lasting hours up to a full day. Headaches are associated with frontal, retro-orbital, and sometimes occipital pressure sensations. She is not experiencing any associated visual changes. Headaches are currently not aggravated by any certain position (sitting versus standing) though generally she will sleep on her right side when she has a migraine which helps. She is currently taking topiramate 100 mg daily and amitriptyline 150 mg daily specifically for migraine. For abortive therapy, she takes Tylenol #3. Sleep: 5-6 hours of sleep per night. Takes prazosyn and gabapentin. She often awakes feeling hungover. She had a sleep study performed many years ago. It showed LLUVIA but she has lost weight since then. Past medication trials: Amitriptyline 150mg at bedtime - Currently taking Topiramate 100mg daily- Currently taking Diamox- Has taken in the past with s/e / ineffocacy Propranolol- Tried in the past but cannot recall Tylenol with codeine- Currently taking as needed Prior workup: Last imaging unknown [facility] Medical History (Updated 03/17/25 @ 08:08 by Sofia Ireland CNP) Cerebrospinal fluid leak Anemia History of fibromyalgia Hx of degenerative disc disease Arthritis Back pain Hx of renal calculi Hx of polycystic kidney disease History of posttraumatic stress disorder (PTSD) Depression History of headache Pseudotumor cerebri Hx of cardiac murmur Constipation Epigastric pain Overweight (BMI 25.0-29.9) Intussusception Ischemic necrosis of small bowel SBO (small bowel obstruction) Surgical History (Updated 03/17/25 @ 08:08 by Sofia Ireland CNP) History of colon resection Hx of tubal ligation Hx of colonoscopy Hx laparoscopic cholecystectomy S/P small bowel resection History of hysterectomy SKIP PIT WORKER (ventriculoperitoneal) shunt status Gastric bypass status for obesity Family History Father HTN (hypertension) Heroin abuse Hepatitis C Alcohol abuse Mother Hepatitis C Anemia Necrosis Alcohol abuse Brother No problems noted. Brother No problems noted. Brother No problems noted. Son No problems noted. 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[employer] [place] Review of Systems Const Reports as per HPI Physical Exam Vital Signs: Last Vital Signs Pulse 87 03/16/25 10:08 Resp 16 03/16/25 10:08 BP 126/76 03/16/25 10:08 Pulse Ox 99 03/16/25 10:08 Const General: cooperative, healthy appearing, comfortable and no acute distress Nutritional Appearance: well nourished Orientation/consciousness: patient oriented x3 Limitations: no limitations HEENT Head: Yes normal to inspection and Yes normocephalic Eyes General: appearance normal, both eyes and all related structures Visual Mcfadden: normal visual mcfadden by confrontation Alignment and Position: alignment normal Periorbital: periorbital findings normal Eyelids: Yes eyelids normal Conjunctivae: conjunctivae normal Sclerae: sclerae normal Direct Ophthalmoscopy: other (There was no ophthalmoscope available in his office for funduscopic exam) Neck Neck: Yes normal visual inspection and Yes full ROM General: Yes no CVA tenderness Back/Spine/Pelvis Back: no CVA tenderness Cervical Spine: normal cervical lordosis Thoracic/Lumbar Spine: thoracic and lumbar spine normal to inspection Neuro General: patient oriented x3 and deep tendon reflexes 2+ bilaterally Cranial nerves: Yes CN's II-XII intact bilaterally Cognition (Neuro): normal cognition Gait exam (Neuro): Normal gait present Motor exam (neuro): 5/5 motor strength present throughout and no tremor noted Sensory Exam: double simultaneous stimulation for sensation normal Romberg Test: Negative Pupils: Normal pupillary reactivity/response: bilateral Psych Appearance: grossly normal Mental Status: mental status grossly normal Speech and movement: Normal speech and movement present and Clear speech present Affect: normal affect Attitude: cooperative Thought process: Normal thought process present Thought content: Normal thought content present Insight: Good insight present (Psych) Judgement: Good judgement present (Psych) Assessment & Plan Assessment & Plan (1) Chronic migraine without aura without status migrainosus, not intractable: Code(s): G43.709 - Chronic migraine without aura, not intractable, without status migrainosus Category: Medical (2) Intracranial shunt: Code(s): Z98.2 - Presence of cerebrospinal fluid drainage device Category: Medical Plan Martin is a 49-year-old female patient with a past medical history of pseudotumor with SKIP PIT WORKER shunt placement in 2013 at [facility] and subsequent CSF leak in 2016 with repair at [facility] with same neurosurgeon. She is following for chronic headache/migraine. She has not been following with Ophthalmology or with Neurosurgery of recent. I have advised her to see Op hthalmology regularly and I will place referral. She does not note any positional headaches or vision changes and therefore worsening of pseudotumor is less likely. More likely, we are looking at another primary headache type including migraine based on clinical features. I am concerned about her current regimen which includes high-dose amitriptyline in addition to her other psychiatric medications. I did educate her on the risk for serotonin syndrome. Reasonably, we should work to reduce the amount of amitriptyline she is on with Psychiatry oversight. I am recommending she start on a once monthly anti CGRP injectable in efforts to peel away at the amitriptyline. For abortive measures, I am recommending a trial of sumatriptan and we discussed the use of opiates in chronic headache as there is substantial evidence to support that they can worsen chronic headache over time. Sleep has also been ongoing concern. I will order a home sleep study for baseline as for sleep and/or sleep disordered breathing can exacerbate primary headaches. I will see her back in 2 months. -Referral to ophthalmology for detailed exam -Home sleep study -Consider referral back to neurosurgery for shunt eval including imaging if there is no improvement with medication changes -Consider reduction in amitriptyline with psych oversight -Start trial of emgality once monthly for migraine prevention -Sumatriptan 50mg monthly -Follow-up in 2 months Coding Level of Care Code Est Pt Level 5 (77647) Diagnoses Chronic migraine without aura without status migrainosus, not intractable G43.709 Intracranial shunt Z98.2
[2025-03-16 10:08] VITALS: BP 126/76; PULSE 87; RESP 16; O2SAT 99
--- OUTSIDE RECORDS SUMMARY | 2025-03-16 12:09 | XMS_ITS | Clinical Summary ---
Author Organization [facility] Address [address] [address] Phone Care Team Providers Care Software Engineer Backend Name Role Phone Etienne Valles MD Primary Care Provider [phone] Allergies Active Allergy Reactions Criticality Noted Date Comments Lisinopril Other (see comments) 04/25/2021 Oxycodone Other (see comments) 04/25/2021 Oxycodone-Acetaminophen Other (see comments) Penicillins Other (see comments) 04/25/2021 Medications Multiple Vitamin (MULTIVITAMIN ADULT PO) Take 1 tablet by mouth Active acetaminophen- codeine (TYLENOL #3) 300-30 MG per tablet Take 1 tablet by mouth every 6 (six) hours if needed 04/03/20 21 Active amitriptyline (ELAVIL) 150 MG tablet Take 150 mg by mouth at bed time at bedtime 04/04/20 21 Active furosemide (LASIX) 40 MG tablet Take 40 mg by mouth 1 (one) time each day 03/09/20 21 Active lansoprazole (PREVACID) [address] capsule Take by mouth 1 (one) time each day 04/03/20 21 Active topiramate (TOPAMAX) 50 MG tablet Take 100 mg by mouth in the morning and 100 mg in the evening. 04/04/20 21 Active Multiple Vitamins-[place] als (Celebrate Multi-Complete 18) capsule Take by mouth Active ARIPiprazole (ABILIFY) 20 MG tablet Take 20 mg by mouth 1 (one) time each day Active prazosin (MINIPRESS) 2 MG capsule Take 2 mg by mouth every night Active escitalopram (LEXAPRO) 10 MG tablet Take 10 mg by mouth 1 (one) time each day Active busPIRone (BUSPAR) 10 MG tablet Take 10 mg by mouth in the morning and 10 mg in the evening and 10 mg before bedtime. Active LORazepam (ATIVAN) 0.5 MG tablet Take 0.5 mg by mouth every 6 (six) hours if needed for anxiety Active DULoxetine (CYMBALTA) [address] capsule 30 mg in the morning and 30 mg in the evening. 07/22/19 25 Active Semaglutide,0. 25 or 0.5MG/DOS, (Ozempic, 0.25 or 0.5 MG/DOSE,) 2 MG/1.5ML solution pen-injector Inject 1 mg under the skin 1 (one) time per week for 4 doses Starting Dose for 4 Weeks 3 mL 1 02/26/20 25 025 Active Semaglutide, 1 MG/DOSE, (Ozempic, 1 MG/DOSE,) 4 MG/3ML solution pen-injector Inject 1 mg under the skin per week 3 mL 3 02/26/20 25 Active Semaglutide,0. 25 or 0.5MG/DOS, (Ozempic, 0.25 or 0.5 MG/DOSE,) 2 MG/3ML solution pen-injector Inject 0.5 mg under the skin per week 3 mL 01/23/20 25 025 Discontinued Semaglutide,0. 25 or 0.5MG/DOS, (Ozempic, 0.25 or 0.5 MG/DOSE,) 2 MG/1.5ML solution pen-injector Inject 0.5 mg under the skin 1 (one) time per week for 4 doses Starting Dose for 4 Weeks 3 mL 3 02/26/20 25 025 Discontinued(Al ternate therapy) Semaglutide, 1 MG/DOSE, (Ozempic, 1 MG/DOSE,) 4 MG/3ML solution pen-injector Inject 1 mg under the skin per week 025 Discontinued(Re order (does not appear on AVS)) Active Problems Problem Noted Date Diagnosed Date Stage 3a chronic kidney disease 12/16/2024 Renal osteodystrophy 12/16/2024 Wedge compression fracture o f unspecified thoracic vertebra, subsequent encounter for fracture with delayed healing 09/19/2022 Uterine leiomyoma 09/19/2022 Reactive depression (situational) 09/19/2022 Moderate major depression, single episode 2022 Headache disorder 09/19/2022 Essential hypertension 09/19/2022 Constipation 09/19/2022 Anemia due to chronic blood loss 09/19/2022 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 Plan to transfer patient to the floor. Continue Keppra 500mg PO BID x1 week. Plan for discharge later today or tomorrow. Benign intracranial hypertension 02/21/2017 Encounter for preprocedural laboratory examinati on 02/21/2017 Encounters Date Type Department Care Team Description 02/25/2025 Refill [facility] [address] [address] Macarena Abbott MA 02/25/2025 Refill [facility] [address] [phone] Macarena Abbott [place] 02/25/2025 Office Communication [facility] [address] [phone] Uli Marie MD 02/25/2025 Refill [facility] [address] [address] Soren Colon 02/04/2025 Office Communication [facility] [address] [address] Uli Marie MD 01/21/2025 Refill [facility] [address] [address] Macarena Abbott MA 01/21/2025 Refill [facility] [address] [address] Macarena Abbott [place] 12/21/2024 Office Communication [facility] [address] [phone] Sofia Mello MA 12/17/2024 Office Communication [facility] [address] [phone] Uli Marie MD 12/16/2024 3:45 PM EDT Office Visit [facility] [address] [phone] Uli Marie MD Stage 3a chronic kidney disease (HCC) (Primary Dx); Essential hypertension; Renal osteodystrophy from Last 3 Months Immunizations Immunization Administration Dates Next Due Influenza, Quadrivalent, Preservative Free 04/06,04/15/2019,04/16/2018 Influenza, Quadrivalent, With Preservative 04/19 Influenza, Unspecified 04/23/2016,04/08/2013 Family History Medical History Relation Comments Hypertension Father Kidney disease Father Kidney disease Mother cyts Relation Status Comments Father Alive Mother Alive Social History Tobacco Use Types Packs/Day Years Used Date Smoking Tobacco: Former Smokeless Tobacco: Never Alcohol Use Standard Drinks/Week Comments Yes 0 (1 standard drink = 0.6 oz pure alcohol) Alcoholic Drinks/day: Occasional social drink Comments Unknown Sex and Gender Information Value Date Recorded Sex Assigned at Female 03/14/2023 10:55 AM EDT Legal Sex Female 5:06 PM EST Gender Identity Female 03/14/2023 10:55 AM EDT Sexual Orientation Not on file Last Filed Vital Signs Vital Sign Reading Time Taken Comments Blood Pressure 110/70 12/16/2024 3:39 PM EDT Pulse 87 12/16/2024 3:39 PM EDT Temperature - - Respiratory Rate - - Oxygen Saturation 97% 12/16/2024 3:39 PM EDT Inhaled Oxygen Concentration - - Weight 98.6 kg (217 lb 6.4 oz) 12/16/2024 3:39 P M EDT Height 170.2 cm (5' 7 ) 04/26/2021 1:10 PM EDT Body Mass Index 34.05 04/26/2021 1:10 PM EDT Plan of Treatment Upcoming Encounters Date Type Department Care Team (Late st Contact Info) Description 03/18/2025 7:30 AM EDT Office Visit [facility] [address] [place] [phone] Kim Robledo ARNP [address] [phone] 05/19/2025 1:45 PM EST Office Visit [facility] [address] [phone] Uli Marie MD [address] [phone] Health Maintenance Due Date Last Done Comments Breast Cancer Screening 1973 Hepatitis B Vaccine (1 of 3 - 19+ 3-dose series) 1992 Pneumococcal Vaccine: 50+ Ye ars (1 of 2 - PCV) 1992 Colorectal Cancer Screening: Annual FOBT 2022 Colorectal Cancer Screening: Colonoscopy 2022 Colorectal Cancer Screening: Sigmoidoscopy 2022 Influenza Vaccine (#1) 2025 3, 05/01/2022, 05/21/2021, Additional history exists Procedures Procedure Name Priority Date/Time Associated Diagnosis Comments URINALYSIS RFX MICROSCOPIC Routine 12/21/2024 9:24 AM EDT MAGNESIUM Routine 12/21/2024 9:24 AM EDT Stage 3a chronic kidney disease (HCC) Essential hypertension Renal osteodystrophy CBC Routine 12/21/2024 9:24 AM EDT Stage 3a chronic kidney disease (HCC) Essential hypertension Renal osteodystrophy VITAMIN D 25 HYDROXY Routine 12/21/2024 9:24 AM EDT Stage 3a chronic kidney disease (HCC) Essential hypertension Renal osteodystrophy PROTEIN / CREATININE RATIO, URINE Routine 12/21/2024 9:24 AM EDT Stage 3a chronic kidney disease (HCC) Essential hypertension Renal osteodystrophy URINE ALBUMIN / CREATININE RATIO Routine 12/21/2024 9:24 AM EDT Stage 3a chronic kidney disease (HCC) Essential hypertension Renal osteodystrophy RENAL FUNCTION PANEL Routine 12/21/2024 9:24 AM EDT Stage 3a chronic kidney disease (HCC) Essential hypertension Renal osteodystrophy PTH, INTACT Routine 12/21/2024 9:24 AM EDT Stage 3a chronic kidney disease (HCC) Essential hypertension Renal osteodystrophy from Last 3 Months Results * Protein, Total, Random Urine w/Creatinine (Protein/Creat Ratio) (12/21/2024 9:24 AM EDT) Protein, Ur <5 mg/dL [facility] Urine Protein/Creatin ine Ratio <0.16 <=0.20 mg/mg creat [facility] Comment:Unable to calculate due to a result outside the reportable range. Creatinine, Urine 32.0 mg/dL [facility] Urine Urine specimen obtained by clean catch procedure / Unknown 12/21/2024 9:24 AM EDT 12/21/2024 11:54 AM EDT us Uli Marie MD LAB URINE ORDERABLES Final Re sult [facility]) [facility] [address] [place] [address] * Urine Albumin / Creatinine Ratio (12/21/2024 9:24 AM EDT) Creatinine, Urine 32.0 mg/dL ME [facility] Microalbumin Urine Random 5.6 0.0 - 29.0 mg/L [facility] Microalbumin/Crea tinine Ratio 18 <30 mg/g creat [facility] Urine Urine specimen obtained by clean catch procedure / Unknown 12/21/2024 9:24 AM EDT 12/21/2024 11:54 AM EDT Uli Marie MD LAB URINE ORDERABLES Final Re sult [facility] [address] [place] [address] * Urinalysis Reflex Microscopic (12/21/2024 9:24 AM EDT) Specific [place] 1.008 1.003 - 1.030 [facility] pH Urine 5.0 5.0 - 8.0 pH [facility] LEUKOCYTES, URINE Negative Negative [facility] Nitrite, Urine Negative Negative [facility] Protein, Urine Negative <=Trace mg/dL [facility] Glucose Urine Negative Negative mg/dL [facility] Ketones, Urine Negative Negative mg/dL [facility] Urobilinogen Urine 0.2 0.2 - 1.0 mg/dL [facility] Bilirubin Urine Negative Negative [facility] Blood Urine Negative Negative [facility] 12/21/2024 9:24 AM EDT 12/21/2024 11:54 AM EDT Uli Marie MD LAB URINE ORDERABLES Final Re sult Performing Organization Address City/[facility]/ZIP Co de Phone Number [facility] [address] [place] [address] * Vitamin D 25 Hydroxy (12/21/2024 9:24 AM EDT) Pathologist [facility] Vitamin D, 25-OH, Total 35.1 30.0 - 80.0 ng/mL [facility] Blood Venous blood / Unknown 12/21/2024 9:24 AM EDT 12/21/2024 11:53 AM EDT Uli Marie MD LAB BLOOD ORDERABLES Final Re sult Performing Organization Address [facility] Co de Phone Number [facility] [address] [place] [address] * (ABNORMAL) CBC (12/21/2024 9:24 AM EDT) [facility] [address] WBC 6.9 4.8 - 10.8 K/[facility] RBC 4.00 3.80 - 4.80 M/[facility] Hgb 11.9 11.5 - 16.0 g/dL [facility] Hematocrit 38.3 35.0 - 47.0 % [facility] MCV 96.5 79.0 - 98.0 FL [facility] MCH 30.0 27.0 - 32.0 pcg [facility] MCHC 31.1(L) 32.0 - 37.0 g/dL [facility] RDW 14.8 11.0 - 15.0 % [facility] Platelets 275 130 - 400 K/[facility] MPV 10.0 7.0 - 11.0 FL [facility] nRBC Count 0.0 <1.0 % [facility] NRBC Absolute 0.00 <0.10 K/mcL [facility] Blood Venous blood / Unknown 12/21/2024 9:24 AM EDT 12/21/2024 11:52 AM EDT Uli Marie MD LAB BLOOD ORDERABLES Final Re sult Performing Organization Address City/[facility]/ZIP Co de Phone Number [facility] [address] [place] [address] * PTH, Intact (12/21/2024 9:24 AM EDT) PTH 87.9 18.5 - 88.0 pcg/mL [facility] Blood Venous blood / Unknown 12/21/2024 9:24 AM EDT 12/21/2024 11:53 AM EDT Uli Marie MD LAB BLOOD ORDERABLES Final Re sult Performing Organization Address [facility]/ZIP Co de Phone Number [facility] [address] [place] [address] * Magnesium (12/21/2024 9:24 AM EDT) Magnesium 1.9 1.9 - 2.6 mg/dL [facility] Blood Venous blood / Unknown 12/21/2024 9:24 AM EDT 12/21/2024 11:53 AM EDT Uli Marie MD LAB BLOOD ORDERABLES Final Re sult Performing Organization Address City/[facility]/ZIP Co de Phone Number [facility] [address] [place] [address] * (ABNORMAL) Renal Function Panel (12/21/2024 9:24 AM EDT) Sodium 141 133 - 145 mmol/L [facility] Potassium 3.8 3.5 - 5.5 mmol/L [facility] Chloride 108 96 - 110 mmol/L [facility] Bicarbonate (CO2) 24 21 - 32 mmol/L [facility] Anion Gap 9 3 - 11 [facility] Glucose 89 70 - 100 mg/dL [facility] BUN 23 5 - 25 mg/dL [facility] Creatinine Serum 1.38(H) 0.50 - 1.10 mg/dL [facility] eGFR 46(L) >=60 mL/min/1. 73m2 [facility] Comment:Calculation based on the Chronic Kidney Disease Epidemiology Collaboration (CKD-EPI) equation refit without adjustment for race. BUN/Creatinine Ratio 16.7 [facility] Albumin 3.6 3.2 - 5.0 g/dL [facility] Calcium 8.7 8.5 - 10.5 mg/dL [facility] Phosphorus 3.2 2.5 - 4.5 mg/dL [facility] Blood Venous blood / Unknown 12/21/2024 9:24 AM EDT 12/21/2024 11:53 AM EDT us Uli Marie MD LAB BLOOD ORDERABLES Final Re sult [facility] [address] [place] [address] from Last 3 Months Insurance [facility] ([id number]) [facility] ([id number]) Care Teams Software Engineer Backend Relationship Specialty Start Date End Date Etienne Valles MD [address] [place] [address] PCP - General Urology 12/18/24
--- OUTSIDE RECORDS SUMMARY | 2025-03-16 12:09 | XMS_ITS | Encounter Summary ---
Author Organization [facility] Address [address] [phone] Phone Care Team Providers Care Real Estate Operations Manager Name Role Phone Etienne Valles MD Primary Care Provider [phone] Encounter Details Date Type Department Care Team (Late st Contact Info) Description 12/17/2024 Office Communication [facility] [address] [phone] Uli Marie MD [address] [phone] Social History Tobacco Use Types Packs/Day Years [...] AM EDT Sexual Orientation Not on file documented as of this encounter Miscellaneous Notes * Telephone Encounter - Uli Marie MD - 12/17/2024 2:10 AM EDT Please send/fax copy of Mendez genetic testing to Dr Valles ( [facility]rol) and let him know she does not have evid of ADPKD based on genetic testing documented in this encounter Plan of Treatment Upcoming Encounters Date Type Department Care Team (Late st Contact Info) Description 03/18/2025 7:30 AM EDT Office Visit [facility] [address] [phone] Kim Robledo ARNP [address] [phone] 05/19/2025 1:45 PM EST Office Visit [facility] [address] [phone] Uli Marie MD [facility] [phone] documented as of this encounter Visit Diagnoses Not on filedocumented in this encounter Care Teams Real Estate Operations Manager Relationship Specialty Start Date End Date Etienne Valles MD [address] PCP - General Urology 12/18/24 documented as of this encounter
--- OUTSIDE RECORDS SUMMARY | 2025-03-16 12:09 | XMS_ITS | Encounter Summary ---
Author Organization [facility] Address [address] [place] [address] Care Team Providers Care Lap Machine Tender Name Role Phone Livia Garza MD Primary Care Prov ider Encounter Details Date Type Department Care Team (Late Contact Info) Description 05/25/2024 Lab Requisition [facility] - Main Lab [address] [facility] [place] [phone] Etienne Valles MD [address] [facility] [address] [place] [phone] Cyst of kidney, acquired Social History Tobacco Use Types Packs/Day Years Used Date Smoking Tobacco: Former Smokeless Tobacco: Never Alcohol Use Standard Drinks/Week Comments Yes 0 (1 standard drink = 0.6 oz pur e alcohol) Comments Unknown Sex and Gender Information Value Date Recorded Sex Assigned at Female 06/09/2024 8:15 AM EST Legal Sex Female 10:07 PM EST Gender Identity Female 06/09/2024 8:15 AM EST Sexual Orientation Straight 06/09/2024 8: 15 AM EST documented as of this encounter Plan of Treatment Upcoming Encounters Date Type Department Care Team (Late Contact Info) Description 03/17/2025 9:30 AM EDT Office Visit Adult Medicine [place] [address] [place], [place] [phone] Kim Wu PA [address] [place], [place] documented as of this encounter Procedures Procedure Name Priority Date/Time Associated Diagnosis Comments CREATININE, SERUM Routine 05/25/2024 9:4 8 AM EST Cyst of kidney, acquired BUN Routine 05/25/2024 9:48 AM EST Cyst of kidney, acquired documented in this encounter Results * BUN (05/25/2024 9:48 AM EST) BUN 21 5 - 25 mg/dL LAB CHEMISTRY METHOD 05/25/2024 4:43 PM EST [facility] Blood Venous blood specimen / Unknown 05/25/2024 9:48 AM EST 05/25/2024 1:44 PM EST us Etienne Valles MD LAB BLOOD ORDERABLES Final Resul t Performing Organization Address [facility] Co de Phone Number [facility] [address] [place] [address], [place] [phone] * (ABNORMAL) Creatinine (05/25/2024 9:48 AM EST) Creatinine 1.36(H) 0.50 - 1.10 mg/dL LAB CHEMISTRY METHOD 05/25/2024 4:43 PM EST [facility] eGFR 48(L) >=60 mL/min/1. 73m2 LAB CHEMISTRY METHOD 05/25/2024 4:43 PM EST [facility] Comment:Calculation based on the Chronic Kidney Disease Epidemiology Collaboration (CKD-EPI) equation refit without adjustment for race. Blood Venous blood specimen / Unknown 05/25/2024 9:48 AM EST 05/25/2024 1:44 PM EST us Etienne Valles MD LAB BLOOD ORDERABLES Final Resul t Performing Organization Address City/[facility]/ZIP Co de Phone Number [facility] [address] [place] [address], [place] [phone] documented in this encounter Visit Diagnoses Diagnosis Cyst of kidney, acquired Acquired cyst of kidney documented in this encounter Care Teams Lap Machine Tender Relationship Specialty Start Date End Date Livia Garza MD [address] [place] [phone] PCP - General Internal Medicine 06/08/24 documented as of this encounter
--- OUTSIDE RECORDS SUMMARY | 2025-03-16 12:09 | XMS_ITS | Encounter Summary ---
Author Organization [facility] Address [address] [place] [address] Care Team Providers Care Aligner Barrel And Receiver Name Role Phone Livia Garza MD Primary Care Prov ider Encounter Details Date Type Department Care Team (Late st Contact Info) Description 05/26/[address] [facility] - Main Lab [address] [facility] [place] [phone] Etienne Valles MD [address] [facility] [address] [place] [phone] Urgency of urination Social History Tobacco Use Types Packs/Day Years [...] 9:30 AM EDT Office Visit Adult Medicine [facility] [address] [place], [place] [phone] Kim Wu PA [address] [place], [place] documented as of this encounter Procedures Procedure Name Priority Date/Time Associated Diagnosis Comments AP OUTSIDE CONSULT Routine 05/25/2024 12 :00 AM EST Urgency of urination documented in this encounter Results * Anatomic pathology outside consult (05/25/2024 12:00 AM EST) Final Diagnosis Urine, Voided: Negative for high grade urothelial carcinoma. Acute inflammation and red blood cells present. 05/27/2024 3:53 PM EST [facility] Clinical Information [id number] urine cytology. 05/27/2024 3:53 PM EST [facility] Gross Description A. Urine, Voided, : [id number] RECD 1 TP SLIDE 05/27/2024 3:53 PM EST [facility] Disclaimer Unless otherwise specified, all tissue is 10% NB formalin fixed and paraffin embedded. 05/27/2024 3:[address] [facility] Tissue Urine specimen from urethra / Unknown 05/25/2024 05/26/2024 2:12 PM EST Etienne Valles MD LAB PATHOLOGY ORDERABLES Final R esult [facility] [address] [place] [address], documented in this encounter Visit Diagnoses Diagnosis Urgency of urination documented in this encounter Care Teams Aligner Barrel And Receiver Relationship Specialty Start Date End Date Livia Garza MD [address] [place] [phone] PCP - General Internal Medicine 06/08/24 documented as of this encounter
--- OUTSIDE RECORDS SUMMARY | 2025-03-16 12:09 | XMS_ITS | Clinical Summary ---
Author Organization [facility] [address] [place] [address] Address [address] [place] [address] Phone Care Team Providers Care Rn Imcu Name Role Phone Livia Garza MD Primary Care Prov ider Allergies Active Allergy Reactions Criticality Noted Date Comments Lisinopril Cough Low 08/31/2020 Penicillins Rash High 08/03/2009 Medications mv,bernarda,min/iro n/folic acid/lut (COMPLETE MULTI ORAL) Take by mouth. Active amitriptyline (ELAVIL) 150 mg tablet Take 1 Tablet by mouth. 1 Active ARIPiprazole (ABILIFY) 20 mg tablet 3 Active busPIRone (BUSPAR) 15 mg tablet 4 Active hydrOXYzine pamoate (VISTARIL) 25 mg capsule 4 Active LORazepam (ATIVAN) 0.5 mg tablet 4 Active prazosin (MINIPRESS) 2 mg capsule 3 Active topiramate (TOPAMAX) 100 mg tablet 4 Active escitalopram (LEXAPRO) 20 mg tablet 4 Active lansoprazole (PREVACID) [address] capsule TAKE 1 CAPSULE BY MOUTH DAILY 90 capsule 3 5 026 Active DULoxetine (CYMBALTA) [address] capsule 1 capsule (30 mg total) 2 (two) times a day. 5 Active lidocaine (LIDODERM) 5 % patch Place 1 patch on the skin. 4 Active acetaminophen- codeine (TYLENOL #4) 300-60 mg per tablet Take 1 tablet by mouth every 4 (four) hours if needed for moderate pain. Max Daily Amount: 6 tablets Active acetaminophen (TYLENOL 8 HOUR) 650 mg 8 hr tablet TAKE 1 TABLET BY MOUTH EVERY 8 HOURS NEEDED FOR PAIN 270 tablet 1 5 Active furosemide (LASIX) 40 mg tablet TAKE 1 TABLET BY MOUTH DAILY 90 tablet 5 Active bisacodyL (DULCOLAX) 5 mg EC tablet TAKE 1 TABLET(5 MG) BY MOUTH 1 TIME EACH DAY NEEDED FOR CONSTIPATION . DO NOT CRUSH, CHEW, OR SPLIT 30 tablet 5 Active furosemide (LASIX) 40 mg tablet TAKE 1 TABLET BY MOUTH DAILY 90 tablet 5 025 Discontinued bisacodyL (Dulcolax, bisacodyl,) 5 mg EC tablet Take 1 tablet (5 mg total) by mouth 1 (one) time each day if needed for constipation . Do not crush, chew, or split. 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 Will continue same regimen. Primary hypertension 08/07/2023 Assessment & Plan (08/10/2024 4:12 PM EST): Blood pressure is well-controlled. Today 112/68.Currently on furosemide 40 mg. Will continue same medication. Encouraged to follow a low-salt diet and exercise regularly. Will follow-up in 6 months. Hemorrhoid 08/03/2009 Immunizations Name Administration Dates Next Due COVID-19 (Pfizer/Comirnaty) 12yo and older 03/31/2023 Influenza Quadravalent, MDCK , 0.5ml, preservative free (Flucelvax) 6mo and older 05/01/2022 Influenza trivalent, 0.5mL, preservative free (Fluarix; FluLaval; Fluzone) ages 6mo and older (Afluria) 3 years and older 03/31/2023,05/21/2021,04/06/2020,2018,04/16/2018,04/19/2017,04/23/2016,1 Influenza, Unspecified 03/31/2023 Moderna SARS-CoV-2 COVID-19, mRNA, LNP-S, preservative free 05/01/2022 Surgical History Surgery Date Site/Laterality Comments OTHER SURGICAL HISTORY PROCEDURE: ANESTHESIA FOR SECTION SECTION PROCEDURE: AL DELIVERY ONLY OTHER SURGICAL HISTORY PROCEDURE: AL LIG/TRNSXJ FLP TUBE ABDL/VAG APPR UNI/BI CHOLECYSTECTOMY PROCEDURE: AL LAPAROSCOPY SURG CHOLECYSTECTOMY OTHER SURGICAL HISTORY 2019 PROCEDURE: HISTORICAL SUPRACERVICAL HYSTERECTOMY W/O BSO OTHER SURGICAL HISTORY 2017 PROCEDURE: AL RDCTJ VOLVULUS INTUSSUSCEPTION INT HRNA LAPT OTHER SURGICAL HISTORY N/A PROCEDURE: AL CRTJ SHUNT [id number] L TERMINUS OTHER SURGICAL HISTORY PROCEDURE: AL GASTRIC RSTCV W/O BYP VERTICAL-BANDED GASTROPLY OTHER SURGICAL HISTORY PROCEDURE: AL RPR ENCEPHALOCELE SKULL VAULT W/CRANIOPLASTY OTHER SURGICAL HISTORY 03/20/2024 PROCEDURE: HISTORY OTHER; COMMENT: 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 Medical History Medical History Date Comments HTN (hypertension) DX:HTN (hyper tension) Cystic kidney disease, congenital DX:Cystic kidney disease, congenital Mild intermittent asthma, uncomplicated DX:Mild intermittent asthma, uncomplicated Pseudotumor cerebri DX:Pseudotum or cerebri Migraines DX:Migraines Major depressive disorder, s jada episode DX:Major depressive disorder , single episode GERD (gastroesophageal reflux disease) DX:GERD (gastroesophageal reflux disease) Anxiety disorder DX:Anxiety diso rder Fibromyalgia DX:Fibromyalgia Iron deficiency anemia DX:Iron d eficiency anemia Arthritis Family History Medical History Relation Name Comments Alcohol/Drug Father Hypertension Father Colon cancer Paternal Grandfather Ovarian cancer Neg Hx Relation Name Status Comments Brother 1 Alive Brother 2 Alive Brother 3 Alive Father Alive Hx Hep C & hero in possibly HIV Maternal Grandfather Maternal Grandmother Alive Mother hep C hx ETOH Paternal Grandfather Alive Paternal Grandmother Social History Tobacco Use Types Packs/Day Years Used Date Smoking Tobacco: Former Cigarettes Q uit: 2015 Smokeless Tobacco: Never Tobacco Cessation:Counseling Given: Not Answered Alcohol Use Standard Drinks/Week Comments Yes 0 (1 standard drink = 0.6 oz pur e alcohol) OCCASIONALLY Interpersonal Safety Answer Date Record ed Physical Abuse 10/06/2024 Verbal Abuse 10/06/2024 Comments No Sex and Gender Information Value Date Recorded Sex Assigned at Female 06/09/2024 8:15 AM EST Legal Sex Female 10:07 PM EST Gender Identity Female 06/09/2024 8:15 AM EST Sexual Orientation Straight 06/09/2024 8: 15 AM EST Obstetrics History Last Filed Vital Signs Vital Sign Reading Time Taken Comments Blood Pressure 114/73 10/06/2024 9:37 AM EDT Pulse 58 10/06/2024 9:37 AM EDT Temperature 36.1 C (97 F) 10/06/2024 9:16 AM EDT Respiratory Rate 20 10/06/2024 9:16 AM EDT Oxygen Saturation 95% 10/06/2024 9:37 AM EDT Inhaled Oxygen Concentration - - Weight 93 kg (205 lb) 08/10/2024 8:33 AM EST Height 170.2 cm (5' 7 ) 05/12/2024 8:48 AM EST Body Mass Index 32.11 05/12/2024 8:48 AM EST Plan of Treatment Upcoming Encounters Date Type Department Care Team (Late st Contact Info) Description 03/17/2025 9:30 AM EDT Office Visit Adult Medicine [facility] [address] [place] [address] Kim Wu PA [address] [place], [place] Health Maintenance Due Date Last Done Comments Breast Cancer Screening 1973 Hepatitis B Vaccines (1 of 3 - 19+ 3-dose series) 1992 Colorectal Cancer Screening: Colonoscopy 06/02/2022 HIV Screening 06/02/2022 Hepatitis C Screening 06/02/2022 Medicare Annual Wellness Visit 06/02/2022 Social Influencers of Health Screening 06/02/2022 Pneumococcal Vaccine: 50+ Years (1 of 1 - PCV) 11/28/2023 Zoster Vaccines (1 of 2) 11/28/2023 Depression Screening 07/01/2024 Influenza Vaccine (#1) 2025 , 03/31/2023, 03/31/2023, Additional history exists DTaP,Tdap,and Td Vaccines (1 - Tdap) 08/10/2025 Postponed from 1992 (Patient Refused) Hypertension/CHF/CAD Annual BMP Blood Test 12/21/2025 12/21/2024, 05/25/2024, 09/04/2023 Cholesterol Screening (Lipid Panel) 08/22/2028 08/22/2023 Cervical Cancer Screening: Pap Smear Discontinued 08/03/2009 COVID-19 Vaccine Completed 05/15/2024, 07/2022, 05/01/2022, Additional history exists HIB Vaccines Aged Out No longer eligi ble based on patient's age to complete this topic HPV Vaccines Aged Out No longer eligi ble based on patient's age to complete this topic Hepatitis A Vaccines Aged Out No long er eligible based on patient's age to complete this topic IPV Vaccines Aged Out No longer eligi ble based on patient's age to complete this topic MMR Vaccines Aged Out No longer eligi ble based on patient's age to complete this topic Meningococcal ACWY Vaccine Aged Out N o longer eligible based on patient's age to complete this topic Meningococcal B Vaccine Aged Out No l onger eligible based on patient's age to complete this topic RSV Immunization Patients Under 20 months Aged Out No longer eligible based on patient's age to complete this topic Varicella Vaccines Aged Out No longer eligible based on patient's age to complete this topic Procedures Procedure Name Priority Date/Time Associated Diagnosis Comments URINALYSIS WITH REFLEX MICROSCOPIC Routine 12/21/2024 9:24 AM EDT Chronic kidney disease (CKD) stage G3a/A1, moderately decreased glomerular filtration rate (GFR) between 45-59 mL/min/1.73 square meter and albuminuria creatinine ratio les* ([facility] V24, [facility] V28) Renal osteodystrophy PARATHYROID HORMONE INTACT Routine 12/21/2024 9:24 AM EDT Chronic kidney disease (CKD) stage G3a/A1, moderately decreased glomerular filtration rate (GFR) between 45-59 mL/min/1.73 square meter and albuminuria creatinine ratio les* (CMS/HCC V24, CMS/HCC V28) Renal osteodystrophy RENAL FUNCTION PANEL Routine 12/21/2024 9:24 AM EDT Chronic kidney disease (CKD) stage G3a/A1, moderately decreased glomerular filtration rate (GFR) between 45-59 mL/min/1.73 square meter and albuminuria creatinine ratio les* (CMS/HCC V24, CMS/HCC V28) Renal osteodystrophy URINALYSIS WITH REFLEX MICROSCOPIC Routine 12/21/2024 9:24 AM EDT Chronic kidney disease (CKD) stage G3a/A1, moderately decreased glomerular filtration rate (GFR) between 45-59 mL/min/1.73 square meter and albuminuria creatinine ratio les* (CMS/HCC V24, CMS/HCC V28) Renal osteodystrophy MICROALBUMIN CREATININE URINE RATIO Routine 12/21/2024 9:24 AM EDT Chronic kidney disease (CKD) stage G3a/A1, moderately decreased glomerular filtration rate (GFR) between 45-59 mL/min/1.73 square meter and albuminuria creatinine ratio les* (CMS/HCC V24, CMS/HCC V28) Renal osteodystrophy PROTEIN AND CREATININE WITH RATIO, URINE Routine 12/21/2024 9:24 AM EDT Chronic kidney disease (CKD) stage G3a/A1, moderately decreased glomerular filtration rate (GFR) between 45-59 mL/min/1.73 square meter and albuminuria creatinine ratio les* (CMS/HCC V24, CMS/HCC V28) Renal osteodystrophy VITAMIN D 25 HYDROXY Routine 12/21/2024 9:24 AM EDT Chronic kidney disease (CKD) stage G3a/A1, moderately decreased glomerular filtration rate (GFR) between 45-59 mL/min/1.73 square meter and albuminuria creatinine ratio les* (CMS/HCC V24, CMS/HCC V28) Renal osteodystrophy COMPLETE BLOOD COUNT Routine 12/21/2024 9:24 AM EDT Chronic kidney disease (CKD) stage G3a/A1, moderately decreased glomerular filtration rate (GFR) between 45-59 mL/min/1.73 square meter and albuminuria creatinine ratio les* (CMS/HCC V24, CMS/HCC V28) Renal osteodystrophy MAGNESIUM Routine 12/21/2024 9:24 AM EDT Chronic kidney disease (CKD) stage G3a/A1, moderately decreased glomerular filtration rate (GFR) between 45-59 mL/min/1.73 square meter and albuminuria creatinine ratio les* (CMS/HCC V24, CMS/HCC V28) Renal osteodystrophy LIPID PANEL Routine 08/22/2023 HM PAP SMEAR Routine 08/03/2009 from Last 3 Months or Most Recently Relevant to Health Maintenance Results * Urinalysis with reflex microscopic (12/21/2024 9:24 AM EDT) Specific [place] Urine 1.008 1.003 - 1.030 LAB URINALYSIS - AUTOMATED METHOD 12/21/2024 12:03 PM [facility] pH, Urine 5.0 5.0 - 8.0 pH LAB URINALYSIS - AUTOMATED METHOD 12/21/2024 12:03 PM [facility] Leukocytes, Urine Negative Negative LAB URINALYSIS - AUTOMATED METHOD 12/21/2024 12:03 PM [facility] Nitrite, Urine Negative Negative LAB URINALYSIS - AUTOMATED METHOD 12/21/2024 12:03 PM [facility] Protein, Urine Negative <=Trace mg/dL LAB URINALYSIS - AUTOMATED METHOD 12/21/2024 12:03 PM [facility] Glucose, Urine Negative Negative mg/dL LAB URINALYSIS - AUTOMATED METHOD 12/21/2024 12:03 PM EDT [facility] Ketones, Urine Negative Negative mg/dL LAB URINALYSIS - AUTOMATED METHOD 12/21/2024 12:03 PM EDT [facility] Urobilinogen, Urine 0.2 0.2 - 1.0 mg/dL LAB URINALYSIS - AUTOMATED METHOD 12/21/2024 12:03 PM EDT [facility] Bilirubin, Urine Negative Negative LAB URINALYSIS - AUTOMATED METHOD 12/21/2024 12:03 PM EDT [facility] Blood, Urine Negative Negative LAB URINALYSIS - AUTOMATED METHOD 12/21/2024 12:03 PM [facility] Urine Urine specimen obtained by clean catch procedure / Unknown Non-blood Collection / Unknown 12/21/2024 9:24 AM EDT 12/21/2024 9:24 AM EDT us Uli Marie MD LAB URINE ORDERABLES Final Re sult [facility] [address] [place] [address], * Protein and creatinine with ratio, urine (12/21/2024 9:24 AM EDT) Protein, Urine <5 mg/dL LAB CHEMISTRY METHOD 12/21/2024 8:58 PM T [facility] Prot/Creat, Ur <0.16 <=0.20 mg/mg creat LAB CHEMISTRY METHOD 12/21/2024 8:58 PM EDT [facility] Comment:Unable to calculate due to a result outside the reportable range. Creatinine, Urine 32.0 mg/dL LAB CHEMISTRY METHOD 12/21/2024 8:58 PM EDT [facility] Urine Urine specimen obtained by clean catch procedure / Unknown Non-blood Collection / Unknown 12/21/2024 9:24 AM EDT 12/21/2024 9:24 AM EDT us Uli Marie MD LAB URINE ORDERABLES Final Re sult Performing Organization Address [facility]/ZIP Co de Phone Number [facility] [address] [place] [address], [place] [phone] * Microalbumin creatinine urine ratio (12/21/2024 9:24 AM EDT) Creatinine, Urine 32.0 mg/dL LAB CHEMISTRY METHOD 12/21/2024 9:12 PM EDT [facility] Microalb, Ur 5.6 0.0 - 29.0 mg/L LAB CHEMISTRY METHOD 12/21/2024 9:12 PM EDT [facility] Microalb/Creat Ratio 18 <30 mg/g creat LAB CHEMISTRY METHOD 12/21/2024 9:12 PM EDT [facility] Urine Urine specimen obtained by clean catch procedure / Unknown Non-blood Collection / Unknown 12/21/2024 9:24 AM EDT 12/21/2024 9:24 AM EDT us Uli Marie MD LAB URINE ORDERABLES Final Re sult Performing Organization Address City/[facility]/ZIP Co de Phone Number [facility] [address] [place] [address], [place] [phone] * Vitamin D 25 hydroxy (12/21/2024 9:24 AM EDT) Vit D, 25-Hydroxy 35.1 30.0 - 80.0 ng/mL LAB CHEMISTRY METHOD 12/21/2024 8:26 PM EDT [facility] Blood Venous blood specimen / Unknown Venipuncture / Unknown 12/21/2024 9:24 AM EDT 12/21/2024 9:24 AM EDT us Uli Marie MD LAB BLOOD ORDERABLES Final Re sult [facility] [address] [place] [address], [place] [phone] * (ABNORMAL) Complete blood count (12/21/2024 9:24 AM EDT) WBC 6.9 4.8 - 10.8 K/mcL LAB HEMETOLOGY METHOD 12/21/2024 12:26 PM EDT [facility] RBC 4.00 3.80 - 4.80 M/mcL LAB HEMETOLOGY METHOD 12/21/2024 12:26 PM EDT [facility] Hemoglobin 11.9 11.5 - 16.0 g/dL LAB HEMETOLOGY METHOD 12/21/2024 12:26 PM EDT [facility] Hematocrit 38.3 35.0 - 47.0 % LAB HEMETOLOGY METHOD 12/21/2024 12:26 PM EDT [facility] MCV 96.5 79.0 - 98.0 FL LAB HEMETOLOGY METHOD 12/21/2024 12:26 PM EDT [facility] MCH 30.0 27.0 - 32.0 pcg LAB HEMETOLOGY METHOD 12/21/2024 12:26 PM EDT [facility] MCHC 31.1(L) 32.0 - 37.0 g/dL LAB HEMETOLOGY METHOD 12/21/2024 12:26 PM EDT [facility] RDW 14.8 11.0 - 15.0 % LAB HEMETOLOGY METHOD 12/21/2024 12:26 PM EDT [facility] Platelets 275 130 - 400 K/mcL LAB HEMETOLOGY METHOD 12/21/2024 12:26 PM EDT [facility] MPV 10.0 7.0 - 11.0 FL LAB HEMETOLOGY METHOD 12/21/2024 12:26 PM EDT [facility] NRBC 0.0 <1.0 % LAB HEMETOLOGY METHOD 12/21/2024 12:26 PM EDT [facility] NRBC Absolute 0.00 <0.10 K/mcL LAB HEMETOLOGY METHOD 12/21/2024 12:26 PM EDT [facility] Blood Venous blood specimen / Unknown Venipuncture / Unknown 12/21/2024 9:24 AM EDT 12/21/2024 9:24 AM EDT us Uli Marie MD LAB BLOOD ORDERABLES Final Re sult Performing Organization Address City/[facility]/ZIP Co de Phone Number [facility] [address] [place] [address], [place] [phone] * Parathyroid hormone intact (12/21/2024 9:24 AM EDT) PTH 87.9 18.5 - 88.0 pcg/mL LAB CHEMISTRY METHOD 12/21/2024 8:27 PM EDT [facility] Blood Venous blood specimen / Unknown Venipuncture / Unknown 12/21/2024 9:24 AM EDT 12/21/2024 9:24 AM EDT us Uli Marie MD LAB BLOOD ORDERABLES Final Re sult [facility] [address] [place] [address], [place] [phone] * Magnesium (12/21/2024 9:24 AM EDT) Magnesium 1.9 1.9 - 2.6 mg/dL LAB CHEMISTRY METHOD 12/21/2024 8:04 PM EDT [facility] Blood Venous blood specimen / Unknown Venipuncture / Unknown 12/21/2024 9:24 AM EDT 12/21/2024 9:24 AM EDT us Uli Marie MD LAB BLOOD ORDERABLES Final Re sult [facility] [address] [place] [address], [place] [phone] * (ABNORMAL) Renal function panel (12/21/2024 9:24 AM EDT) Sodium 141 133 - 145 mmol/L LAB CHEMISTRY METHOD 12/21/2024 8:04 PM [facility] Potassium 3.8 3.5 - 5.5 mmol/L LAB CHEMISTRY METHOD 12/21/2024 8:04 PM [facility] Chloride 108 96 - 110 mmol/L LAB CHEMISTRY METHOD 12/21/2024 8:04 PM [facility] CO2 24 21 - 32 mmol/L LAB CHEMISTRY METHOD 12/21/2024 8:04 PM [facility] Anion Gap 9 3 - 11 LAB CHEMISTRY METHOD 12/21/2024 8:04 PM [facility] Glucose 89 70 - 100 mg/dL LAB CHEMISTRY METHOD 12/21/2024 8:04 PM [facility] BUN 23 5 - 25 mg/dL LAB CHEMISTRY METHOD 12/21/2024 8:04 PM [facility] Creatinine 1.38(H) 0.50 - 1.10 mg/dL LAB CHEMISTRY METHOD 12/21/2024 8:04 PM [facility] eGFR 46(L) >=60 mL/min/1. 73m2 LAB CHEMISTRY METHOD 12/21/2024 8:04 PM [facility] Comment:Calculation based on the Chronic Kidney Disease Epidemiology Collaboration (CKD-EPI) equation refit without adjustment for race. BUN/Creatinine Ratio 16.7 LAB CHEMISTRY METHOD 12/21/2024 8:04 PM EDT [facility] Albumin 3.6 3.2 - 5.0 g/dL LAB CHEMISTRY METHOD 12/21/2024 8:04 PM EDT [facility] Calcium 8.7 8.5 - 10.5 mg/dL LAB CHEMISTRY METHOD 12/21/2024 8:04 PM EDT [facility] Phosphorus 3.2 2.5 - 4.5 mg/dL LAB CHEMISTRY METHOD 12/21/2024 8:04 PM EDT [facility] Blood Venous blood specimen / Unknown Venipuncture / Unknown 12/21/2024 9:24 AM EDT 12/21/2024 9:24 AM EDT Uli Marie MD LAB BLOOD ORDERABLES Final Re sult [facility] [address] [place] [address], * Lipid panel (08/22/2023) LDL/HDL Ratio 2 0 - 4 Triglycerides 84 0 - 150 mg/dL Cholesterol 158 0 - 200 mg/dL HDL 69 >=40 mg/dL LDL Cholesterol 73 0 - 100 mg/dL Blood Venous blood specimen / Unknown Jaciel Jain MD LAB BLOOD ORDERABLES Radha l Result * Pap Smear (08/03/2009) Pap smear No Interpretation , Abstracted Historical [facility]y [facility] Final Result from Last 3 Months or Most Recently Relevant to Health Maintenance Insurance [facility] MEDIC[facility] Member Subscriber Plan / Payer (Ef fective 2023-Present) Name:AVIVA RODRIGUEZ Relation to Subscriber:Self Name:Brook Rodriguezkd Payer ID:[id number] Group ID:[id number] Type:Not on file Address: [facility] [address] [address] Care Teams Rn Imcu Relationship Specialty Start Date End Date Livia Garza MD [address] [place] [phone] PCP - General Internal Medicine 06/08/24
--- OUTSIDE RECORDS SUMMARY | 2025-03-16 12:09 | XMS_ITS | Encounter Summary ---
Author Organization [facility] Address [address] [address] Phone Care Team Providers Care Presser Hand Name Role Phone Etienne Valles MD Primary Care Provider [phone] Reason for Visit * Reason Onset Date Comments Med Refill 02/25/2025 Encounter Details Date Type Department Care Team (Late st Contact Info) Description 02/25/2025 Refill [facility] [address] [address] Macarena Abbott MA [address] [facility] [address] [place] [address] Social History Tobacco Use Types Packs/Day Years [...] on file documented as of this encounter Plan of Treatment Upcoming Encounters Date Type Department Care Team (Late Contact Info) Description 03/18/2025 7:30 AM EDT Office Visit [facility] [address] [facility] [address] [place] [address] Kim Robledo ARNP [address] [phone] 05/19/2025 1:45 PM EST Office Visit [facility] [address] [facility] [address] [place] [phone] Uli Marie MD [address] [facility] [address] [place] [phone] documented as of this encounter Visit Diagnoses Not on filedocumented in this encounter Care Teams Presser Hand Relationship Specialty Start Date End Date Etienne Valles MD [address] PCP - General Urology 12/18/24 documented as of this encounter
--- OUTSIDE RECORDS SUMMARY | 2025-03-16 12:10 | XMS_ITS | Encounter Summary ---
Author Organization [facility] Address [address] [place] [address] Care Team Providers Care Scale Agent Name Role Phone Livia aGrza MD Primary Care Prov ider Encounter Details Date Type Department Care Team (Late st Contact Info) Description 05/26/[address] [facility] [address] [facility] [place] [phone] Etienne Valles MD [address] [facility] [address] [place] [phone] Urgency of urination Social History Tobacco Use [...] 9:30 AM EDT Office Visit Adult Medicine [facility] [address] [place], [place] [phone] Kim Wu PA [address] [place], [place] documented as of this encounter Procedures Procedure Name Priority Date/Time Associated Diagnosis Comments AP OUTSIDE CONSULT Routine 05/23/2024 12 :00 AM EST Urgency of urination documented in this encounter Results * Anatomic pathology outside consult (05/23/2024 12:00 AM EST) Final Diagnosis Urine, Voided: Negative for high grade urothelial carcinoma. 05/27/2024 3:46 PM EST [facility] Clinical Information [id number] Urine Cytology with Reflex 05/27/2024 3:46 PM EST [facility] Gross Description A. Urine, Voided, : [id number] Received 1 TP 05/27/2024 3:46 PM EST [facility] Disclaimer Unless otherwise specified, all tissue is 10% NB formalin fixed and paraffin embedded. 05/27/2024 3:46 PM [facility] Tissue Urine specimen from urethra / Unknown 05/23/2024 05/26/2024 4:00 PM EST us Etienne Valles MD LAB PATHOLOGY ORDERABLES Final R esult [facility] [address] [place] [address], documented in this encounter Visit Diagnoses Diagnosis Urgency of urination documented in this encounter Care Teams Scale Agent Relationship Specialty Start Date End Date Livia Garza MD [address] [place] [address] PCP - General Internal Medicine 06/08/24 documented as of this encounter
--- OUTSIDE RECORDS SUMMARY | 2025-03-16 12:10 | XMS_ITS | Encounter Summary ---
Author Organization [facility] Address [address] [place] [address] Care Team Providers Care Grip Wrapper Name Role Phone Livia Garza MD Primary Care Prov ider Encounter Details Date Type Department Care Team (Late st Contact Info) Description 05/26/2024 Lab Requisition [facility] - Main Lab [address] [facility] [place] [phone] Etienne Valles MD [address] [facility] [address] [place] [phone] Urgency of urination Social History Tobacco Use [...] 9:30 AM EDT Office Visit Adult Medicine [facility] [address] [place], [place] [phone] Kim Wu PA [address] [place], [place] documented as of this encounter Procedures Procedure Name Priority Date/Time Associated Diagnosis Comments AP OUTSIDE CONSULT Routine 05/24/2024 12 :00 AM EST Urgency of urination documented in this encounter Results * Anatomic pathology outside consult (05/24/2024 12:00 AM EST) Final Diagnosis Urine, Voided: Negative for high grade urothelial carcinoma. 05/27/2024 3:48 PM EST [facility] Clinical Information [id number] Urine Cytology with Reflex 05/27/2024 3:48 PM [facility] Gross Description A. Urine, Voided, : [id number] Received 1 TP 05/27/2024 3:48 PM EST [facility] Disclaimer Unless otherwise specified, all tissue is 10% NB formalin fixed and paraffin embedded. 05/27/2024 3:48 PM [facility] Tissue Urine specimen from urethra / Unknown 05/24/2024 05/26/2024 4:06 PM EST us Etienne Valles MD LAB PATHOLOGY ORDERABLES Final R esult [facility] [address] [place] [address], documented in this encounter Visit Diagnoses Diagnosis Urgency of urination documented in this encounter Care Teams Grip Wrapper Relationship Specialty Start Date End Date Livia Garza MD [address] [place] [address] PCP - General Internal Medicine 06/08/24 documented as of this encounter
--- OUTSIDE RECORDS SUMMARY | 2025-03-16 12:10 | XMS_ITS | Encounter Summary ---
Author Organization [facility] Address [address] [address] Phone Care Team Providers Care Capsule Filler Name Role Phone Etienne Valles MD Primary Care Provider [phone] Encounter Details Date Type Department Care Team (Late st Contact Info) Description 02/25/2025 Office Communication [facility] [address] [address] Uli Marie MD [address] [address] Social History Tobacco Use Types [...] Office Visit [facility] [address] [phone] Kim Robledo ARNP [address] [address] 05/19/2025 1:45 PM EST Office Visit [facility] [address] [phone] Uli Marie MD [address] [address] documented as of this encounter Visit Diagnoses Not on filedocumented in this encounter Care Teams Capsule Filler Relationship Specialty Start Date End Date Etienne Valles MD [address] PCP - General Urology 12/18/24 documented as of this encounter
== END 2025-03-16 10:47 | disposition home or self-care (01) ==
LOC: HO.HSM 09:34
PROVIDERS: PCP Internal Medicine; Referring Provider Internal Medicine; Visit Provider Nurse Practitioner
DX: G43.709 Chronic migraine without aura, not intractable, without status migrainosus (principal); Z98.2 Presence of cerebrospinal fluid drainage device
CPT/HCPCS: 99214

== ENCOUNTER → 2025-03-16 09:34 | Outpatient (BNVA) | payer OTHER, SELFPAY | PROVIDERS: PCP Internal Medicine; Referring Provider Internal Medicine; Visit Provider Nurse Practitioner | DX: G43.709 Chronic migraine without aura, not intractable, without status migrainosus (principal); Z98.2 Presence of cerebrospinal fluid drainage device | CPT/HCPCS: 99212 ==

== ENCOUNTER 2025-05-18 07:53 | Outpatient (AMB) | payer OTHER, SELFPAY ==
--- NOTE | 2025-05-18 07:54 | MHC.OFFVIS ---
Vital Signs 05/18/25 08:01 Height 5 ft 7 in Weight 199 lb BMI 31.2 BP 122/80 Blood Pressure Location Rt brachial Position Sitting Respiration 16 Pulse 92 Pulse Source Pulse Oximeter Pulse Oximetry (%) 98 Oxygen Delivery Method Room Air Intake Visit Reasons: 2M Front Desk Officer Required: No Allergies lactose Allergy (Intermediate, Verified 05/18/25 08:02) Nausea and Vomiting oxycodone (Percocet) Allergy (Intermediate, Verified 05/18/25 08:02) Itching Penicillins (PENICILLINS) Allergy (Intermediate, Verified 05/18/25 08:02) RASH lisinopril (LISINOPRIL) Adverse Reaction (Intermediate, Verified 05/18/25 08:02) COUGH HPI Comments Details: Martin is a 49-year-old female patient with a past medical history of pseudotumor with AUTOMATED CUTTING MACHINE OPERATOR shunt placement in 2012 at [facility] and subsequent CSF leak in 2016 with repair at [facility] with same neurosurgeon. She follows in the clinic for chronic headaches. Her last LP was normal per documentation however there is no associated date. She has not been following with Ophthalmology. Last imaging is unknown. I saw this patient on 03/16/2025 at which time she reported that her headaches were worsening having proximally 4-5 headaches per week lasting hours up to a full day. Headaches were associated with frontal, retro-orbital, and sometimes occipital pressure sensations. She was not experiencing any visual auras. Headaches were not aggravated with any specific position. She was taking topiramate 100 mg daily, amitriptyline 150 mg daily and Tylenol No. 3 for abortive. Sleep: 5-6 hours of sleep per night. Takes prazosyn and gabapentin. She often awakes feeling hungover. She had a sleep study performed many years ago. It showed LLUVIA but she has lost weight since then. During her last visit, she was recommended to make an ophthalmology exam, have a home sleep study, and consider referral back to Neurosurgery for shunt evaluation. We discussed considering a reduction in her amitriptyline with psychiatry is oversight and I started her on a trial of Emgality for migraine prevention. She was advised to use her sumatriptan sparingly and we would focus on weaning down of her Tylenol No. 3 use as this can contribute to worsening headaches by way of opiate overuse hyperalgesia. Today she tells me that since our last visit, she has been taking 1-2 Tylenol with codeine per day and is able to tolerate this regimen. She has sumatriptan 3 times per week as well. She has found this to be very helpful for acute therapy. She is still averaging 3-4 headaches week. Headaches are primarily to the occipital area and radiate to the frontal and retro-orbital areas. She has not had any other new arising neurological changes. She has been taking the Emgality without any clear benefit yet. She will be taking her 4th dose this week. She has some concerns that she is able to feel her shunt tubing much more than she could previously. She does however have an appointment coming up with her neurosurgeon at [facility] the of May. Since our last visit, she also saw Ophthalmology. She had a very reassuring exam though they did change her glasses prescription. She has been working with a new psychiatric provider by the name of Corry Everett. She has an upcoming appointment with her in May. Past medication trials: Amitriptyline 150mg at bedtime - Currently taking Topiramate 100mg daily- Currently taking Diamox- Has taken in the past with s/e / ineffocacy Propranolol- Tried in the past but cannot recall Tylenol with codeine- Currently taking as needed Prior workup: Last imaging unknown [facility] Medical History (Updated 05/18/25 @ 08:36 by Sofia Ireland CNP) Cerebrospinal fluid leak Anemia History of fibromyalgia Hx of degenerative disc disease Arthritis Back pain Hx of renal calculi Hx of polycystic kidney disease History of posttraumatic stress disorder (PTSD) Depression History of headache Pseudotumor cerebri Hx of cardiac murmur Constipation Epigastric pain Overweight (BMI 25.0-29.9) Intussusception Ischemic necrosis of small bowel SBO (small bowel obstruction) Surgical History (Updated 03/17/25 @ 08:08 by Sofia Ireland CNP) History of colon resection Hx of tubal ligation Hx of colonoscopy Hx laparoscopic cholecystectomy S/P small bowel resection History of hysterectomy AUTOMATED CUTTING MACHINE OPERATOR (ventriculoperitoneal) shunt status Gastric bypass status for obesity Family History Father HTN (hypertension) Heroin abuse Hepatitis C Alcohol abuse Mother Hepatitis C Anemia Necrosis Alcohol abuse Brother No problems noted. Brother No problems noted. Brother No problems noted. Son No problems noted. 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[place] [place] Review of Systems Const All systems reviewed & are unremarkable except as noted in HPI and below Physical Exam Const General: cooperative, healthy appearing, comfortable and no acute distress Nutritional Appearance: well nourished Orientation/consciousness: patient oriented x3 Limitations: no limitations HEENT Head: Yes normal to inspection and Yes normocephalic Eyes General: appearance normal, both eyes and all related structures Visual Mcfadden: normal visual mcfadden by confrontation Alignment and Position: alignment normal Periorbital: periorbital findings normal Eyelids: Yes eyelids normal Conjunctivae: conjunctivae normal Sclerae: sclerae normal Direct Ophthalmoscopy: other (There was no ophthalmoscope available in his office for funduscopic exam) Neck Neck: Yes normal visual inspection and Yes full ROM General: Yes no CVA tenderness Back/Spine/Pelvis Back: no CVA tenderness Cervical Spine: normal cervical lordosis Thoracic/Lumbar Spine: thoracic and lumbar spine normal to inspection Neuro General: patient oriented x3 and deep tendon reflexes 2+ bilaterally Cranial nerves: Yes CN's II-XII intact bilaterally Cognition (Neuro): normal cognition Gait exam (Neuro): Normal gait present Motor exam (neuro): 5/5 motor strength present throughout and no tremor noted Sensory Exam: double simultaneous stimulation for sensation normal Romberg Test: Negative Pupils: Normal pupillary reactivity/response: bilateral Psych Appearance: grossly normal Mental Status: mental status grossly normal Speech and movement: Normal speech and movement present and Clear speech present Affect: normal affect Attitude: cooperative Thought process: Normal thought process present Thought content: Normal thought content present Insight: Good insight present (Psych) Judgement: Good judgement present (Psych) Assessment & Plan Assessment & Plan (1) Chronic migraine without aura without status migrainosus, not intractable: Code(s): G43.709 - Chronic migraine without aura, not intractable, without status migrainosus Category: Medical (2) Intracranial shunt: Code(s): Z98.2 - Presence of cerebrospinal fluid drainage device Category: Surgical (3) Medication overuse headache: Code(s): G44.40 - Drug-induced headache, not elsewhere classified, not intractable Category: Medical Plan Martin is a 49-year-old female patient with a past medical history of pseudotumor with AUTOMATED CUTTING MACHINE OPERATOR shunt placement in 2013 at [facility] and subsequent CSF leak in 2016 with repair at [facility] with same neurosurgeon. She is following for chronic headache/migraine. Her ophthalmology exam was reassuring and therefore high pressures role in her headaches at this time. She does however have an upcoming appointment with neurosurgeon as she does feel that her shunt tubing feels different than prior though not sure if that is related to weight loss. She has poor sleep quality which may be playing role. She has not yet had her sleep study. There was significant opportunity in revising her medications. She is on a significant amount of serotonin altering medications and I do have concern about serotonin syndrome another side effects. I would really like to significantly reduce her dose of amitriptyline if possible. I would like to have her psychiatric provider white and on this as well. We also need to work on getting her off of the Tylenol with codeine as this may be contributing to her headaches. There was significant evidence against the use of opiates for headache abortive therapy. She is taking Tylenol codeine regularly in his likely experiencing hyperalgesia due to opiate overuse. Throughout the next month, our goal is to have her use only 1 Tylenol with codeine daily on average and we will continue to taper from there. -continue plan to taper the Tylenol with codeine -consider occipital nerve blocks for bridge therapy during our weaning process (I will submit for prior authorization) -Home sleep study -neurosurgery appointment week of May -Consider reduction in amitriptyline with psych oversight -continue Emgality 120 mg once monthly -Sumatriptan 50mg as needed for acute therapy -Follow-up in 1 month Coding Level of Care Code Est Pt Level 4 (38558) Diagnoses Chronic migraine without aura without status migrainosus, not intractable G43.709 Intracranial shunt Z98.2 Medication overuse headache G44.40
[2025-05-18 08:01] VITALS: BP 122/80; PULSE 92; RESP 16; O2SAT 98; BMI 31.2
== END 2025-05-18 08:30 | disposition home or self-care (01) ==
LOC: HO.HSM 07:53
PROVIDERS: PCP Internal Medicine; Visit Provider Nurse Practitioner
DX: G43.709 Chronic migraine without aura, not intractable, without status migrainosus (principal); Z98.2 Presence of cerebrospinal fluid drainage device; G44.40 Drug-induced headache, not elsewhere classified, not intractable
CPT/HCPCS: 99214

== ENCOUNTER → 2025-05-18 07:53 | Outpatient (BNVA) | payer OTHER, SELFPAY | PROVIDERS: PCP Internal Medicine; Visit Provider Nurse Practitioner | DX: G43.709 Chronic migraine without aura, not intractable, without status migrainosus (principal); G44.40 Drug-induced headache, not elsewhere classified, not intractable; Z98.2 Presence of cerebrospinal fluid drainage device | CPT/HCPCS: 99212 ==

== ENCOUNTER 2025-06-01 08:17 | Outpatient (AMB) | payer OTHER, SELFPAY ==
--- OUTSIDE RECORDS SUMMARY | 2025-06-01 08:22 | XMS_ITS | Encounter Summary ---
Demographics Address [address] [facility] [address] [place] [address] Home Phone Mobile Phone Email Address Preferred Language en Marital Status Voodoo Affiliation Unknown Race Unknown Ethnic Group or Author Organization [facility] Address [address] [place] [address] Support Name Relationship Address Phone Frank Dennison Spouse [address] [facility] [address] [place] [address] Care Team Providers Care Motorcycle Service Technician Name Role Phone Livia Garza MD Primary Care Prov ider Encounter Details Date Type Department Care Team (Late Contact Info) Description 05/25/2024 Lab Requisition [facility] - Main Lab [address] [facility] [place] [address] Etienne Valles MD [address] [facility] [address] [place] [phone] Cyst of kidney, acquired Social History Tobacco [...] Department Care Team (Late Contact Info) Description 06/02/2025 11:30 AM EST Consult Bariatric Surgery - [place] [address] [facility] [address] [place] [address] Mercedes Altamirano MD [address] [place] [address] 06/15/2025 8:00 AM EST Appointment [facility] Endoscopy [address] [place] [address] Perry Titus MD [address] [facility] [address] [place] [address] 07/19/2025 10:00 AM EST Consult Adult Medicine [address] [phone] Gurdeep Macedo PA [address] [place] [address] 04/18/2026 7:30 AM EDT Office Visit [address] [phone] Livia Garza MD [address] [place] [address] documented as of this encounter Procedures Procedure Name Priority Date/Time Associated Diagnosis Comments CREATININE, SERUM Routine 05/25/2024 9:4 8 AM EST Cyst of kidney, acquired BUN Routine 05/25/2024 9:48 AM EST Cyst of kidney, acquired documented in this encounter Results * BUN (05/25/2024 9:48 AM EST) BUN 21 5 - 25 mg/dL LAB CHEMISTRY METHOD 05/25/2024 4:43 PM EST [facility] Blood Venous blood specimen / Unknown 05/25/2024 9:48 AM EST 05/25/2024 1:44 PM EST us Etienne Valles MD LAB BLOOD ORDERABLES Final Resul t [facility] [address] [place] [address], [place] [phone] * (ABNORMAL) Creatinine (05/25/2024 9:48 AM EST) Creatinine 1.36(H) 0.50 - 1.10 mg/dL LAB CHEMISTRY METHOD 05/25/2024 4:43 PM EST [facility] eGFR 48(L) >=60 mL/min/1. 73m2 LAB CHEMISTRY METHOD 05/25/2024 4:43 PM EST [facility] Comment:Calculation based on the Chronic Kidney Disease Epidemiology Collaboration (CKD-EPI) equation refit without adjustment for race. Blood Venous blood specimen / Unknown 05/25/2024 9:48 AM EST 05/25/2024 1:44 PM EST Etienne Valles MD LAB BLOOD ORDERABLES Final Resul t [facility] [address] [place] [address], documented in this encounter Visit Diagnoses Diagnosis Cyst of kidney, acquired Acquired cyst of kidney documented in this encounter Care Teams Motorcycle Service Technician Relationship Specialty Start Date End Date Livia Garza MD [address] [place] [phone] PCP - General Internal Medicine 06/08/24 documented as of this encounter
--- OUTSIDE RECORDS SUMMARY | 2025-06-01 08:22 | XMS_ITS | Encounter Summary ---
Demographics Address [address] [facility] [address] [place] [address] Home Phone Mobile Phone Email Address Preferred Language en Marital Status Yarsani Affiliation Unknown Race Unknown Ethnic Group or Author Organization [facility] Address [address] [place] [address] Support Name Relationship Address Phone Frank Dennison Spouse [address] [facility] [address] [place] [address] Care Team Providers Care Caltrans Equipment Operator Name Role Phone Livia Garza MD Primary Care Prov ider Encounter Details Date Type Department Care Team (Late Contact Info) Description 05/26/2024 Lab Requisition [facility] - Main Lab [address] [facility] [place] [address] Etienne Valles MD [address] [facility] [address] [place] [phone] Urgency of urination Social History Tobacco Use [...] 11:30 AM EST Consult Bariatric Surgery - [place] [address] [facility] [address] [place] [address] Mercedes Altamirano MD [address] [place] [address] 06/15/2025 8:00 AM EST Appointment [facility] Endoscopy [address] [place] [phone] Perry Titus MD [address] [facility] [address] [place] [address] 07/19/2025 10:00 AM EST Consult [address] [phone] Gurdeep Macedo PA [address] [place] [address] 04/18/2026 7:30 AM EDT Office Visit [address] [phone] Livia Garza MD [address] [place] [address] documented as of this encounter Procedures Procedure Name Priority Date/Time Associated Diagnosis Comments AP OUTSIDE CONSULT Routine 05/24/2024 12 :00 AM EST Urgency of urination documented in this encounter Results * Anatomic pathology outside consult (05/24/2024 12:00 AM EST) Final Diagnosis Urine, Voided: Negative for high grade urothelial carcinoma. 05/27/2024 3:[address] [facility] at 1548 EST Clinical Information [id number] Urine Cytology with Reflex 05/27/2024 3:[address] [facility] Gross Description A. Urine, Voided, : [id number] Received 1 TP 05/27/2024 3:[address] [facility] Disclaimer Unless otherwise specified, all tissue is 10% NB formalin fixed and paraffin embedded. 05/27/2024 3:[address] [facility] Tissue Urine specimen from urethra / Unknown 05/24/2024 05/26/2024 4:06 PM EST Etienne Valles MD LAB PATHOLOGY ORDERABLES Final R esult [facility] [address] [place] [address], documented in this encounter Visit Diagnoses Diagnosis Urgency of urination documented in this encounter Care Teams Caltrans Equipment Operator Relationship Specialty Start Date End Date Livia Garza MD [address] [place] [phone] PCP - General Internal Medicine 06/08/24 documented as of this encounter
--- OUTSIDE RECORDS SUMMARY | 2025-06-01 08:22 | XMS_ITS | Clinical Summary ---
Author Organization [facility] [address] [place] [address] Address [address] [place] [address] Phone Care Team Providers Care Office Technology Professor Name Role Phone Livia Garza MD Primary Care Prov ider Allergies Active Allergy Reactions Criticality Noted Date Comments Lisinopril Cough Low 08/31/2020 Penicillins Rash High 08/03/2009 Medications mv,bernarda,min/iro n/folic acid/lut (COMPLETE MULTI ORAL) Take by mouth. Active amitriptyline (ELAVIL) 150 mg tablet Take 1 Tablet by mouth. 1 Active ARIPiprazole (ABILIFY) 20 mg tablet 3 Active hydrOXYzine pamoate (VISTARIL) 25 mg capsule [...] (four) hours if needed for moderate pain. Active Ozempic 1 mg/dose (4 mg/3 mL) injection pen Inject 1 mg under the skin once a week. 5 Active gabapentin (NEURONTIN) 300 mg capsule 5 Active Emgality Pen 120 mg/mL injection pen 5 Active SUMAtriptan (IMITREX) 50 mg tablet 5 Active acetaminophen (TYLENOL 8 HOUR) 650 mg 8 hr tablet TAKE 1 TABLET BY MOUTH EVERY 8 HOURS NEEDED FOR PAIN 270 tablet 1 5 Active bisacodyL (DULCOLAX) 5 mg EC tablet TAKE 1 TABLET(5 MG) BY MOUTH DAILY NEEDED FOR CONSTIPATION . DO NOT CRUSH, CHEW, OR SPLIT 90 tablet 1 5 Active furosemide (LASIX) 40 mg tablet TAKE 1 TABLET BY MOUTH DAILY 90 tablet 5 Active furosemide (LASIX) 40 mg tablet TAKE 1 TABLET BY MOUTH DAILY 90 tablet 5 025 Discontinued bisacodyL (DULCOLAX) 5 mg EC tablet TAKE 1 TABLET(5 MG) BY MOUTH DAILY NEEDED FOR CONSTIPATION . DO NOT CRUSH, CHEW, OR SPLIT 30 tablet 5 025 Discontinued Active Problems Problem [...] Will follow-up in 6 months. Hemorrhoid 08/03/2009 Encounters Date Type Department Care Team Description 05/24/2025 Telephone Adult Medicine [address] [phone] Livia Patel MD 05/13/2025 Results Follow-Up Endocrinology - [address] [phone] Denice Soto PA 05/07/2025 8:24 AM EST - 05/07/2025 11:59 PM EST Hospital Encounter CT Scan - [address] [phone] Adrenal abnormality ([facility]/HCC V24) Discharge Disposition: Home or Self Care 04/20/[address] [phone] Denice Soto PA 04/14/2025 8:00 AM EDT Office Visit Adult Medicine [address] [phone] Livia Patel MD Adult general medical examination (Primary Dx); Encounter for lipid screening for cardiovascular disease; Screen for colon cancer; Need for hepatitis C screening test; Recurrent major depressive disorder, in partial remission (CMS/HCC V24) 03/31/2025 Telephone Adult [address] [phone] Livia Patel MD 03/17/2025 9:30 AM EDT Office Visit Adult Medicine [address] [phone] Kim Wu PA Drug-induced constipation (Primary Dx); Drug-induced weight loss; Class 1 obesity due to excess calories without serious comorbidity with body mass index (BMI) of 32.0 to 32.9 in adult; Abrasion of right cornea, initial encounter; Screening for depression; Encounter for screening involving social determinants of health (SDoH) from Last 3 Months Immunizations Immunization Administration Dates Next Due COVID-19 (Pfizer/Comirnaty) 12yo and older 03/31/2023 Influenza Quadravalent, MDCK , 0.5ml, preservative free (Flucelvax) 6mo and older 05/01/2022 Influenza trivalent, 0.5mL, preservative free (Fluarix; FluLaval; Fluzone) ages 6mo and older (Afluria) 3 years and older 05/15/2024,03/31/2023,05/21/2021,2019,04/15/2019,04/16/2018,04/19/2017,1 ,04/08/2013 Influenza, Unspecified 03/31/2023 Moderna SARS-CoV-2 COVID-19, mRNA, LNP-S, preservative free 05/01/2022 Surgical History Surgery Date Site/Laterality Comments OTHER SURGICAL HISTORY PROCEDURE: ANESTHESIA FOR SECTION SECTION PROCEDURE: RI DELIVERY ONLY OTHER SURGICAL HISTORY PROCEDURE: RI LIG/TRNSXJ FLP TUBE ABDL/VAG APPR UNI/BI CHOLECYSTECTOMY PROCEDURE: RI LAPAROSCOPY SURG CHOLECYSTECTOMY OTHER SURGICAL HISTORY 2019 PROCEDURE: HISTORICAL SUPRACERVICAL HYSTERECTOMY W/O BSO OTHER SURGICAL HISTORY 2017 PROCEDURE: RI RDCTJ VOLVULUS INTUSSUSCEPTION INT HRNA LAPT OTHER SURGICAL HISTORY N/A PROCEDURE: RI CRTJ SHUNT ROAWFUSCRP-[id number]-KTGCSF L TERMINUS OTHER SURGICAL HISTORY PROCEDURE: RI GASTRIC RSTCV W/O BYP VERTICAL-BANDED GASTROPLY OTHER SURGICAL HISTORY PROCEDURE: RI RPR ENCEPHALOCELE SKULL VAULT W/CRANIOPLASTY OTHER SURGICAL [...] Years Used Date Smoking Tobacco: Former Cigarettes 0 Q uit: 2014 Smokeless Tobacco: Never Tobacco Cessation:Counseling Given: Not Answered Alcohol Use Standard Drinks/Week Comments Yes 0 (1 standard drink = 0.6 oz pur e alcohol) OCCASIONALLY Housing Instability Answer Date Recorde d Are you worried that in the next 2 months you may not have stable housing? No 03/17/2025 Food Access & Nutrition Answer Date Rec orded Do you have access to a vari ety of food including fruits and vegetables? Yes 03/17/2025 Health Literacy Answer Date Recorded How often do you need to hav e someone help you when you read instructions, pamphlets, or other written material from your doctor or pharmacy? Never 03/17/2025 Caregiver: How often do you need to have someone help you when you read instructions, pamphlets, or other written material from your doctor or pharmacy? Not on file 03/17/2025 Financial Risk Answer Date Recorded How hard is it for you to pa y for the very basics like food, housing, medical care, and air conditioning / heating? Not very hard 03/17/2025 Transportation Answer Date Recorded Has the lack of transportati on kept you from meetings, work, or from getting things needed for daily living? No Has the lack of transportati on kept you from medical appointments or from getting medications? No 03/17/2025 Social Isolation Answer Date Recorded How often do you feel lonely or isolated from th ose around you? Never 03/17/2025 Food Risk Answer Date Recorded Within the past 12 months we worried whether our food would run out before we got money to buy more. Never true 03/17/2025 Within the past 12 months th e food we bought just didn't last and we didn't have money to get more. Never true 03/17/2025 Dependent Care Answer Date Recorded Do you need help finding or paying for care for your loved ones. For example, professor of early childhood education or elderly care for an older adult? No 03/17/2025 Education Answer Date Recorded Do you think completing more education or training, like finishing a GED, going to college, or learning a trade, would be helpful for you? No 03/17/2025 Employment and Income Answer Date Recor ded During the last four weeks, have you been actively looking for work? No 03/17/2025 Living Situation Answer Date Recorded What is your living situation? Unrecognized valu e 03/17/2025 Interpersonal Safety Answer Date Record ed Physical Abuse Unrecognized value 10/06/2024 Verbal Abuse Unrecognized value 10/06/2024 Comments No Sex and Gender Information Value Date Recorded Sex Assigned at Female 06/09/2024 8:15 AM EST Legal Sex Female 10:07 PM EST Gender Identity Female 06/09/2024 8:15 AM EST Sexual Orientation Straight 06/09/2024 8: 15 AM EST Obstetrics History Last Filed Vital Signs Vital Sign Reading Time Taken Comments Blood Pressure 111/70 04/14/2025 7:51 AM EDT Pulse 91 04/14/2025 7:51 AM EDT Temperature 35.8 C (96.4 F) 04/14/2025 7:51 AM EDT Respiratory Rate 14 04/14/2025 7:51 AM EDT Oxygen Saturation 98% 04/14/2025 7:51 AM EDT Inhaled Oxygen Concentration - - Weight 93 kg (205 lb) 04/14/2025 7:51 AM EDT Height 170.2 cm (5' 7 ) 04/14/2025 7:51 AM EDT Body Mass Index 32.11 04/14/2025 7:51 AM EDT Plan of Treatment Upcoming Encounters Date Type Department Care Team (Late st Contact Info) Description 06/02/2025 11:30 AM EST Consult Bariatric Surgery - Lane [address] [facility] [address] [place] [address] Mercedes Altamirano MD [address] [place] [address] 06/15/2025 8:00 AM EST Appointment [facility] Endoscopy [address] [place] [address] Perry Titus MD [address] [facility] [address] [place] [address] 07/19/2025 10:00 AM EST Consult Adult Medicine [address] [phone] Gurdeep Macedo PA [address] [place] [phone] 04/18/2026 7:30 AM EDT Office Visit Adult Medicine [address] [phone] Livia Garza MD [address] [place], [place] Health Maintenance Due Date Last Done Comments Breast Cancer Screening 1973 Colorectal Cancer Screening: Colonoscopy 1973 Hepatitis C Screening 06/02/2022 Zoster Vaccines (1 of 2) 11/28/2023 COVID-19 Vaccine ( season) 2025 05/15/2024, 03/31/2023, 05/01/2022, Additional history exists DTaP,Tdap,and Td Vaccines (1 - Tdap) 08/10/2025 Postponed from 1992 (Patient Refused) Hypertension/CHF/CAD Annual BMP Blood Test 12/21/2025 12/21/2024, 05/25/2024, 09/04/2023 Social Influencers of Health Screening 03/17/2026 03/17/2025 Pneumococcal Vaccine: 50+ Years (1 of 1 - PCV) 04/14/2026 Postponed from 11/28/2023 (Patient Refused) Cholesterol Screening (Lipid Panel) 08/22/2028 08/22/2023 Medicare Annual Wellness Visit 2038 RSV Immunization Adult Patients (1 - 1-dose 75+ series) 2048 Cervical Cancer Screening: Pap Smear Discontinued 08/03/2009 Depression Screening Completed 03/17/2025 Influenza Vaccine Completed 04/17/2025, , 03/31/2023, Additional history exists HIB Vaccines Aged Out No longer eligi ble based on patient's age to complete this topic HIV Screening Discontinued HPV Vaccines Aged Out No longer eligi ble based on patient's age to complete this topic Hepatitis A Vaccines Aged Out No long er eligible based on patient's age to complete this topic Hepatitis B Vaccines Discontinued IPV Vaccines Aged Out No longer eligi [...] on patient's age to complete this topic Goals Goal Patient Goal Type Associated Problems Recent Progress Patient-Stated? Author Autogenerat ed Goal Care Plan Autogenerated Problem No Bryan Sanchez Procedures Procedure Name Priority Date/Time Associated Diagnosis Comments CT ABDOMEN PELVIS WO CONTRAST Routine 05/07/2025 8:41 AM EST Adrenal abnormality ([facility] V24) RENAL FUNCTION PANEL Routine 12/21/2024 9:24 AM EDT Chronic kidney disease (CKD) stage G3a/A1, moderately decreased glomerular filtration rate (GFR) between 45-59 mL/min/1.73 square meter and albuminuria creatinine ratio les* (CMS/HCC V24, CMS/[facility]ER[facility] V28) Renal osteodystrophy LIPID PANEL Routine 08/22/2023 HM PAP SMEAR Routine 08/03/2009 from Last 3 Months or Most Recently Relevant to Health Maintenance Results * CT Abdomen Pelvis wo Contrast (05/07/2025 8:41 AM EST) Anatomical Region Laterality Modality Body Computed Tomogra phy 05/07/2025 8:47 AM EST Impressions 05/10/2025 10:56 AM EST No adrenal nodule. -------- FINAL REPORT -------- Dictated By: Ruba Paz Dictated Date: 05/07/2025 08:47 ET Assigned Physician: Ruba Paz Reviewed and Electronically Signed By: Ruba Paz Signed Date: 05/10/2025 10:56 ET Workstation ID: [id number] Transcribed By: Self Edit Transcribed Date: 05/07/2025 10:01 ET Narrative 05/10/2025 10:56 AM EST EXAM: CT abdomen and pelvis HISTORY: Follow-up left adrenal nodule. COMPARISON: CT abdomen 06/12/2024, CT abdomen and pelvis 05/19/2024 TECHNIQUE: CT of the abdomen and pelvis with oral and without intravenous contrast. Coronal and sagittal reformatted images were generated. The radiation dose total CTDIvol: 19.25 mGy. FINDINGS: Limited assessment of solid organs without IV contrast. Lower thorax: No infiltrate in the basal lungs. Trace pleural effusion. Trace pericardial fluid as before. Liver: Few stable too small to characterize hypodense lesions. Gallbladder/biliary tree: Cholecystectomy clips. Stable mild dilatation of central intrahepatic ducts. Common bile duct measures 1.0 cm which is likely related to postcholecystectomy state. Spleen: No abnormality detected. Pancreas: No abnormality detected. Adrenal glands: No adrenal nodule. Kidneys/ureters: Stable fullness of the right renal pelvis which could be due to an extrarenal pelvis. No left hydronephrosis. Few tiny intrarenal stones. Stable 1.3 cm hyperdense lesion arising from the right upper kidney which probably represents a hemorrhagic/proteinaceous cyst. Multiple bilateral cysts again noted which are better seen on the prior contrasted exam. Vasculature: No abdominal aortic aneurysm. Peritoneum: No evidence of free intraperitoneal air. Minimal free fluid in the pelvis. No organized collection. Partially imaged ventricular peritoneal shunt tubing in the right abdomen. Lymph nodes: No lymphadenopathy detected. Bowel: No evidence of a bowel obstruction. Moderate volume of stool in the colon. No bowel inflammatory changes. Normal appendix. Postsurgical changes of previous gastric bypass surgery. Body wall: Tiny fat-containing periumbilical hernia. Bladder: No abnormality detected. Reproductive: Status post supracervical hysterectomy. No adnexal abnormality detected. Bones: Multilevel degenerative changes in the spine. Procedure Note Ruba Paz MD - 05/10/2025 EXAM: CT abdomen and pelvis HISTORY: Follow-up left adrenal nodule. COMPARISON: CT abdomen 06/12/2024, CT abdomen and pelvis 05/19/2024 TECHNIQUE: CT of the abdomen and pelvis with oral and without intravenouscontrast. Coronal and sagittal reformatted images were generated. Theradiation dose total CTDIvol: 19.25 mGy. FINDINGS: Limited assessment of solid organs without IV contrast. Lower thorax: No infiltrate in the basal lungs. Trace pleural effusion.Trace pericardial fluid as before. Liver: Few stable too small to characterize hypodense lesions. Gallbladder/biliary tree: Cholecystectomy clips. Stable mild dilatation ofcentral intrahepatic ducts. Common bile duct measures 1.0 cm which islikely related to postcholecystectomy state. Spleen: No abnormality detected. Pancreas: No abnormality detected. Adrenal glands: No adrenal nodule. Kidneys/ureters: Stable fullness of the right renal pelvis which could bedue to an extrarenal pelvis. No left hydronephrosis. Few tiny intrarenalstones. Stable 1.3 cm hyperdense lesion arising from the right upperkidney which probably represents a hemorrhagic/proteinaceous cyst.Multiple bilateral cysts again noted which are better seen on the priorcontrasted exam. Vasculature: No abdominal aortic aneurysm. Peritoneum: No evidence of free intraperitoneal air. Minimal free fluid inthe pelvis. No organized collection. Partially imaged ventricularperitoneal shunt tubing in the right abdomen. Lymph nodes: No lymphadenopathy detected. Bowel: No evidence of a bowel obstruction. Moderate volume of stool in thecolon. No bowel inflammatory changes. Normal appendix. Postsurgicalchanges of previous gastric bypass surgery. Body wall: Tiny fat-containing periumbilical hernia. Bladder: No abnormality detected. Reproductive: Status post supracervical hysterectomy. No adnexalabnormality detected. Bones: Multilevel degenerative changes in the spine. IMPRESSION: No adrenal nodule. -------- FINAL REPORT -------- Dictated By: Ruba Paz Dictated Date: 05/07/2025 08:47 ET Assigned Physician: Ruba Paz Reviewed and Electronically Signed By: Ruba Paz Signed Date: 05/10/2025 10:56 ET Workstation ID: [id number] Transcribed By: Self Edit Transcribed Date: 05/07/2025 10:01 [address] CT PROCEDURES Final Result * (ABNORMAL) Renal function panel (12/21/2024 9:24 AM EDT) Sodium 141 133 - 145 mmol/L LAB CHEMISTRY METHOD 12/21/2024 8:[address] [facility] Potassium 3.8 3.5 - 5.5 mmol/L LAB CHEMISTRY METHOD 12/21/2024 8:[address] [facility] Chloride 108 96 - 110 mmol/L LAB CHEMISTRY METHOD 12/21/2024 8:[address] [facility] CO2 24 21 - 32 mmol/L LAB CHEMISTRY METHOD 12/21/2024 8:[address] [facility] Anion Gap 9 3 - 11 LAB CHEMISTRY METHOD 12/21/2024 8:[address] [facility] Glucose 89 70 - 100 mg/dL LAB CHEMISTRY METHOD 12/21/2024 8:[address] [facility] BUN 23 5 - 25 mg/dL LAB CHEMISTRY METHOD 12/21/2024 8:[address] [facility] Creatinine 1.38(H) 0.50 - 1.10 mg/dL LAB CHEMISTRY METHOD 12/21/2024 8:[address] [facility] eGFR 46(L) >=60 mL/min/1. 73m2 LAB CHEMISTRY METHOD 12/21/2024 8:[address] [facility] Comment:Calculation based on the Chronic Kidney Disease Epidemiology Collaboration (CKD-EPI) equation refit without adjustment for race. BUN/Creatinine Ratio 16.7 LAB CHEMISTRY METHOD 12/21/2024 8:[address] [facility] Albumin 3.6 3.2 - 5.0 g/dL LAB CHEMISTRY METHOD 12/21/2024 8:[address] [facility] Calcium 8.7 8.5 - 10.5 mg/dL LAB CHEMISTRY METHOD 12/21/2024 8:04 PM EDT [facility] Phosphorus 3.2 2.5 - 4.5 mg/dL LAB CHEMISTRY METHOD 12/21/2024 8:04 PM EDT [facility] Blood Venous blood specimen / Unknown Venipuncture / Unknown 12/21/2024 9:24 AM EDT 12/21/2024 9:24 AM EDT Uli Marie MD LAB BLOOD ORDERABLES Final Re sult [facility] [address] [place] [address], * Lipid panel (08/22/2023) LDL/HDL Ratio 2 [...] or Most Recently Relevant to Health Maintenance Additional Health Concerns Active Problems Noted Date Diagnosed Date Autogenerated Problem 04/26/2025 Insurance [facility] MEDIC[facility] Member Subscriber Plan / Payer (Ef fective 2023-Present) Name:MARTIN RODRIGUEZ Relation to Subscriber:Self Name:Martin Rodriguez Payer ID:[id number] Group ID:[id number] Type:Not on file Address: [address] [place] [address] Care Teams Office Technology Professor Relationship Specialty Start Date End Date Livia Garza MD [address] [place] [phone] PCP - General Internal Medicine 06/08/24
--- OUTSIDE RECORDS SUMMARY | 2025-06-01 08:22 | XMS_ITS | Encounter Summary ---
Demographics Address [address] [facility] [address] [place] [address] Home Phone Mobile Phone Email Address Preferred Language en Marital Status Mandaen Affiliation Unknown Race Unknown Ethnic Group or Author Organization [facility] Address [address] [place] [address] Support Name Relationship Address Phone Frank Dennison Spouse [address] [facility] [address] [place] [address] Care Team Providers Care Patient Support Representative Name Role Phone Livia Garza MD Primary Care Prov ider Encounter Details Date Type Department Care Team (Late Contact Info) Description 05/26/2024 Lab Requisition [facility] - Main Lab [address] [facility] [place] [address] Etienne Valles MD [address] [facility] [address] [place] [phone] Urgency of urination Social History Tobacco Use [...] 11:30 AM EST Consult Bariatric Surgery - [place] [address] [facility] [address] [place] [address] Mercedes Altamirano MD [address] [place] [address] 06/15/2025 8:00 AM EST Appointment [facility] Endoscopy [address] [place] [phone] Perry Titus MD [address] [facility] [address] [place] [address] 07/19/2025 10:00 AM EST Consult [address] [phone] Gurdeep Macedo PA [address] [place] [address] 04/18/2026 7:30 AM EDT Office Visit [address] [phone] Livia Garza MD [address] [place] [address] documented as of this encounter Procedures Procedure Name Priority Date/Time Associated Diagnosis Comments AP OUTSIDE CONSULT Routine 05/23/2024 12 :00 AM EST Urgency of urination documented in this encounter Results * Anatomic pathology outside consult (05/23/2024 12:00 AM EST) Final Diagnosis Urine, Voided: Negative for high grade urothelial carcinoma. 05/27/2024 3:46 PM EST [facility] at 1546 EST Clinical Information [id number] Urine Cytology with Reflex 05/27/2024 3:46 PM EST [facility] Gross Description A. Urine, Voided, : [id number] Received 1 TP 05/27/2024 3:46 PM EST [facility] Disclaimer Unless otherwise specified, all tissue is 10% NB formalin fixed and paraffin embedded. 05/27/2024 3:46 PM EST [facility] Tissue Urine specimen from urethra / Unknown 05/23/2024 05/26/2024 4:00 PM EST Etienne Valles MD LAB PATHOLOGY ORDERABLES Final R esult [facility] [address] [place] [address], documented in this encounter Visit Diagnoses Diagnosis Urgency of urination documented in this encounter Care Teams Patient Support Representative Relationship Specialty Start Date End Date Livia Garza MD [address] [place] [phone] PCP - General Internal Medicine 06/08/24 documented as of this encounter
--- OUTSIDE RECORDS SUMMARY | 2025-06-01 08:22 | XMS_ITS | Encounter Summary ---
Demographics Address [address] [facility] [address] [place] [address] Home Phone Mobile Phone Email Address Preferred Language en Marital Status Pentecostal Affiliation Unknown Race Unknown Ethnic Group or Author Organization [facility] Address [address] [place] [address] Support Name Relationship Address Phone Frank Dennison Spouse [address] [facility] [address] [place] [address] Care Team Providers Care Single Resource Boss Name Role Phone Livia Garza MD Primary Care Prov ider Encounter Details Date Type Department Care Team (Late Contact Info) Description 05/26/2024 Lab Requisition [facility] - Main Lab [address] [facility] [place] [address] Etienne Valles MD [address] [facility] [address] [place] [phone] Urgency of urination Social History Tobacco Use [...] 11:30 AM EST Consult Bariatric Surgery - [place] [address] [facility] [address] [place] [address] Mercedes Altamirano MD [address] [place] [address] 06/15/2025 8:00 AM EST Appointment [facility] Endoscopy [address] [place] [phone] Perry Titus MD [address] [facility] [address] [place] [address] 07/19/2025 10:00 AM EST Consult [address] [phone] Gurdeep Macedo PA [address] [place] [address] 04/18/2026 7:30 AM EDT Office Visit [address] [phone] Livia Garza MD [address] [place] [address] documented as of this encounter Procedures Procedure Name Priority Date/Time Associated Diagnosis Comments AP OUTSIDE CONSULT Routine 05/25/2024 12 :00 AM EST Urgency of urination documented in this encounter Results * Anatomic pathology outside consult (05/25/2024 12:00 AM EST) Final Diagnosis Urine, Voided: Negative for high grade urothelial carcinoma. Acute inflammation and red blood cells present. 05/27/2024 3:53 PM EST [facility] at 1553 EST Clinical Information [id number] urine cytology. 05/27/2024 3:53 PM EST [facility] Gross Description A. Urine, Voided, : [id number] RECD 1 TP SLIDE 05/27/2024 3:53 PM EST [facility] Disclaimer Unless otherwise specified, all tissue is 10% NB formalin fixed and paraffin embedded. 05/27/2024 3:53 PM EST [facility] Tissue Urine specimen from urethra / Unknown 05/25/2024 05/26/2024 2:12 PM EST us Etienne Valles MD LAB PATHOLOGY ORDERABLES Final R esult [facility] [address] [place] [address], documented in this encounter Visit Diagnoses Diagnosis Urgency of urination documented in this encounter Care Teams Single Resource Boss Relationship Specialty Start Date End Date Livia Garza MD [address] [place] [phone] PCP - General Internal Medicine 06/08/24 documented as of this encounter
[2025-06-01 08:23] VITALS: BMI 31.2
--- NOTE | 2025-06-01 08:23 | A.PHYSOV ---
Vital Signs 06/01/25 08:23 Height 5 ft 7 in Weight 199 lb 2 oz BMI 31.2 Intake Visit Reasons: Follow up after injection 04/19/25 Intake Note: Patient is a 49 year old female in office today for a follow up visit after injection 04/19/25(Right L5-S1 Interlaminar Epidural Steroid Injection). 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 The patient has a history of bilateral lumbar radiculitis and was last seen on March 10, 2025. Previous L4 transforaminal epidural steroid injections, with the most recent on February 15, 2025, provided good control of the left-sided pain. However, the right-sided lower back pain has continued to be severe, rated 7/10. A right-sided L5-S1 interlaminar epidural injection performed on April 19, 2025, did not provide any relief. The patient continues to perform physician-guided home exercises. The patient's current medication regimen includes gabapentin 1200 mg at bedtime, which improves sleep, and codeine prescribed by a neurologist. The neurologist is tapering the patient's codeine dose, currently down to 45 from 60, due to concern for rebound headaches. For migraine management, the patient receives monthly Emgality injections, which have been effective, and is also prescribed sumatriptan. An occipital nerve block is planned by the neurologist for headache management. Pain Description - Location: The patient reports persistent pain in the mid and lower back, which is currently severe and localized to the right side. - Radiation: The pain does not radiate down the leg. - Severity: The right-sided pain is rated as 7/10. - Quality: The pain is described as constant and bothersome. - Modifying Factors: The pain is present regardless of sitting or standing. Results [facility] Medical History (Updated 06/01/25 @ 08:43 by Kit Hewitt DO) Lumbar radiculitis Sacroiliac inflammation Sacroiliac dysfunction Cerebrospinal fluid leak Anemia History of fibromyalgia Hx of degenerative disc disease Arthritis Back pain Hx of renal calculi Hx of polycystic kidney disease History of posttraumatic stress disorder (PTSD) Depression History of headache Pseudotumor cerebri Hx of cardiac murmur Constipation Epigastric pain Overweight (BMI 25.0-29.9) Intussusception Ischemic necrosis of small bowel SBO (small bowel obstruction) Surgical History History of colon resection Hx of tubal ligation Hx of colonoscopy Hx laparoscopic cholecystectomy S/P small bowel resection History of hysterectomy MACHINE PRESSER (ventriculoperitoneal) shunt status Gastric bypass status for obesity Family History Father HTN (hypertension) Heroin abuse Hepatitis C Alcohol abuse Mother Hepatitis C Anemia Necrosis Alcohol abuse Brother No problems noted. Brother No problems noted. Brother No problems noted. Son No problems noted. Social History Household Members: Spouse Housing: House Alcohol intake: current Alcohol intake frequency: holidays/special occasions only Patient Tobacco Use Status: Former Tobacco user service: No Current occupational status: employed Current occupation: [employer]- [employer] – [place] Review of Systems Narrative Review of Systems - Musculoskeletal: Reports persistent mid and lower back pain, which is worse on the right side. - Denies pain radiating down the legs. - Neurological: Reports a history of migraines. - Constitutional: Reports improved sleep with medication. Physical Exam Exam Exam: Physical Exam - General: Gait is non-antalgic. - Back/Musculoskeletal: Examination reveals marked tenderness to palpation over the right sacroiliac joint, with only minimal tenderness over the left. - Provocative testing including Tim test and Lina finger test were positive on the right side. Positive right SI compression test. Dural tension signs were negative. Neurological examination was nonfocal. Patient demonstrated no upper motor neuron signs. Lumbar extension was restricted. Vital Signs: BMI result Body Mass Index 31.2 Assessment & Plan Assessment & Plan (1) Sacroiliac dysfunction: Code(s): M53.3 - Sacrococcygeal disorders, not elsewhere classified Category: Medical (2) Sacroiliac inflammation: Code(s): M46.1 - Sacroiliitis, not elsewhere classified Category: Medical (3) Lumbar radiculitis: Code(s): M54.16 - Radiculopathy, lumbar region Category: Medical Plan Pain Management - Analgesia: The patient currently takes gabapentin 1200 mg at bedtime and codeine as prescribed by the neurologist. - Affect: Sleep quality has improved with the use of gabapentin. - Activities of Daily Living: The patient continues to perform physician-guided home exercises. - Adverse Effects: The patient's neurologist is tapering the codeine due to concerns about it triggering rebound headaches. - Aberrant Drug-Related Behavior: The neurologist is managing the tapering of the opioid medication; no other aberrant behaviors were noted. Plan Patient was informed and verbally consented to the use of an ambient scribe for clinic note documentation during this visit. 1. Right Sacroiliac Joint Dysfunction The patient's right-sided low back pain did not respond to a recent L5-S1 interlaminar epidural steroid injection. Physical examination reveals localized tenderness over the right SI joint and positive provocative maneuvers, suggesting pain originating from the sacroiliac joint. A right sacroiliac joint injection for diagnostic and therapeutic purposes is recommended. The patient consents to the procedure and requests sedation, so it will be scheduled at [facility]. 2. Chronic Pain Syndrome The patient will continue taking gabapentin 1200 mg at bedtime, which the patient's neurologist has approved. The patient's neurologist is managing a taper of the codeine prescription. The patient is advised to continue with the physician-guided home exercise program. Risks and benefits of the procedure were discussed with the patient. Potential alternative measures were also discussed. Patient understands that the procedure is completely elective. Potential side effects associated with injectable medications were discussed. All questions were answered to the patient's satisfaction. Discussion Notes I explained to the patient that based on the physical examination, the persistent right-sided pain appears to be originating from the sacroiliac (SI) joint, which is the joint that connects the spine to the pelvis. I noted that this is the likely reason the recent epidural injection into the spine was not effective. I recommended proceeding with a right SI joint injection for both diagnostic confirmation and therapeutic relief. The patient agreed to the procedure and requested sedation. I informed the patient that procedures requiring sedation are performed at [facility], and the patient was agreeable with this location. Our office will contact the patient to schedule the right SI joint injection. Patient Instructions - Continue taking gabapentin 1200 mg every night at bedtime. - Continue with your home exercises as you have been doing. - We are planning an injection into your right buttock area (the sacroiliac joint) to help with your pain. - You will receive medicine to make you sleepy for this procedure. - This procedure will take place at [facility]. - Our office will call you to schedule the appointment for your injection. - Keep following your neurologist's advice about your other medicines, especially the plan to slowly reduce your codeine medication. Orders: Referrals Physiatry Procedure Notification [id number] - Deficient saccadic eye movements, M46.1 - Sacroiliitis, not elsewhere classified, M53.3 - Sacrococcygeal disorders, not elsewhere classified Coding Level of Care Code Est Pt Level 4 (60775) Complex visit Add On G2211 Diagnoses Sacroiliac dysfunction M53.3 Sacroiliac inflammation M46.1 Lumbar radiculitis M54.16
== END 2025-06-01 08:41 | disposition home or self-care (01) ==
LOC: HO.HPHYS 08:18
PROVIDERS: PCP Internal Medicine; Visit Provider Physical Medicine & Rehabilitation
DX: M53.3 Sacrococcygeal disorders, not elsewhere classified (principal); M46.1 Sacroiliitis, not elsewhere classified; M54.16 Radiculopathy, lumbar region
CPT/HCPCS: 99214; G2211

== ENCOUNTER → 2025-06-01 08:17 | Outpatient (BNVA) | payer OTHER, SELFPAY | PROVIDERS: PCP Internal Medicine; Visit Provider Physical Medicine & Rehabilitation | DX: M53.3 Sacrococcygeal disorders, not elsewhere classified (principal); M46.1 Sacroiliitis, not elsewhere classified; M54.16 Radiculopathy, lumbar region; H55.81 Deficient saccadic eye movements; M35.3 Polymyalgia rheumatica | CPT/HCPCS: 99212 ==